=== PATIENT | male | born 1970 | race Caucasian/White ===

== ENCOUNTER → 2020-02-19 08:59 | Outpatient (CLI) | payer OTHER, SELFPAY ==
--- NOTE | 2020-02-19 | ASPOS_PTH ---
PATIENT: KAYA SCHILLING LOC: [facility] U#:[id number] AGE/SX: 55/M ROOM: RE02/19/[address]: Dr. Jh Londono MD : 1970 BED: DIS: SPEC #: [id number] RECD: 02/19/20 10:00 STATUS: CLARISA REArturo #: [id number] NOÉ: 02/19/20 00:[address]: Jh Londono DEPT: CYTOLOGY RECD BY: Samson Morfin ENTERED: 02/19/20 11:14 SP TYPE: ASP HERE OTHR DR: Oswaldo Marr, ROLL TABLE OPERATOR-C Tissues: Neck, NOS Procedures: Surgery Specimen Level IV Cytology Other Fine Needle Asp on Site HEADER OPERATION: Fine needle aspiration right neck mass PRE-OP DIAGNOSIS: Right neck mass TISSUE SUBMITTED: FNA right neck mass DIAGNOSIS CYTOLOGY Fine needle aspiration, right neck mass (smears and cell block): Polymorphous lymphocytes present. See comment. AM:mery 02/22/20 COMMENT The specimen is evaluated at the time of FNA by Dr. Pressley. Immediate Evaluation = Polymorphous lymphocytes present. Flow cytometry analysis of aspirate material reveals no evidence of B-cell or T-cell lymphoma. An incisional or excisional biopsy is recommended for definitive classification. The complete flow report is viewable in EMR. Case has been reviewed in consultation with Dr. Negron who concurs with the above diagnosis. IDC:SJ CYTOLOGY STUDY Slides are reviewed. CYTOLOGY GROSS Received is 0.2 ml of reddish fluid labeled with the patient's name, and designated right neck mass. Six imprints and two paps are made from the submitted fluid and the rest is added to CytoLyt for cell block preparation. Submitted for cytology study. / AM:mery 02/19/20 TC:5 CPT: 14661, 67165, 41977, 24040
== END ==
PROVIDERS: PCP Nurse Practitioner Family; Referring Provider Otolaryngology Otolaryngology/Facial Plastic Surgery; Visit Provider Otolaryngology Otolaryngology/Facial Plastic Surgery
DX: R22.1 Localized swelling, mass and lump, neck (principal)
CPT/HCPCS: 10021; 88161; 88305

== ENCOUNTER → 2020-05-14 17:18 | Outpatient (CLI) | payer OTHER, SELFPAY | PROVIDERS: Referring Provider Otolaryngology; Visit Provider Otolaryngology | DX: Z11.59 Encounter for screening for other viral diseases (principal) | CPT/HCPCS: 87635; C9803; U0003 ==

== ENCOUNTER → 2020-05-19 13:34 | Outpatient (CLI) | payer OTHER, SELFPAY ==
--- NOTE | 2020-05-19 | IMM_PTH ---
PATIENT: KAYA SCHILLING LOC: [facility] U#:[id number] AGE/SX: 55/M ROOM: RE05/19/[address]: Dr. Froilan Londono MD : 1970 BED: DIS: SPEC #: [id number] RECD: 05/20/20 11:41 STATUS: CLARISA REQ #: [id number] NOÉ: 05/19/20 00:[address]: Froilan Londono DEPT: IMMUNOHISTOCHEMISTRY RECD BY: Faby Grier ENTERED: 05/20/20 11:43 SP TYPE: IMMUNO OTHR DR: No Primary Care Phys Tissues: A - Tonsil, NOS B - Tonsil, NOS Procedures: CK5-6 (initial) CK14 (add) KI-67 (add) P16 (add) P53 (add) P40 (add) PHYSICIAN & INSTITUTION [place] [id number] SPECIMEN INFORMATION: Tissue Source: A - Right tonsil biopsy #1, B - Right tonsil biopsy #2 Clinical Info: Tonsillar hypertrophy, neck mass Specimen Number: [id number] A & B CPT code: 44531 x2, 91924 x7 METHODOLOGY: Deparaffinized sections of prefer/formalin-fixed tissue or PAP/DQ stained slides are incubated with monoclonal/polyclonal antibodies/oligonucleotide probes. Localization is made via biotin free immunoperoxidase method. Appropriate controls are performed and reacted as expected. Results on target cell population are indicated in the following table: RESULTS: ANTIBODY / CLONE RESULT Block A P40 (BC28) positive CK5-6 (D5 & 1684) positive P53 (DO-7) positive, 5% P16 (E6H4) positive Ki-67 (30-9) positive, 85% CK14 (LL002) positive, focal Block B P40 (BC28) positive CK5-6 (D5 & 1684) positive CK14 (LL002) positive These tests were developed and their performance characteristics determined by [facility]. They may not have been cleared or approved by the U.S. Food and Drug Administration. The FDA has determined that such clearance or approval is not necessary. The above immunohistochemical/dualISH markers are ordered and reviewed by the Pathologist. INTERPRETATION: A. Right tonsil biopsy #1: Invasive squamous cell carcinoma. B. Right tonsil biopsy #2: Invasive squamous cell carcinoma. AM:mery 05/21/20
--- NOTE | 2020-05-19 11:45 | TONS_PTH ---
PATIENT: KAYA SCHILLING [facility]: [facility] U#:[id number] AGE/SX: 55/M ROOM: RE05/19/[address]: Dr. Froilan Londono MD : 1970 BED: DIS: SPEC #: [id number] RECD: 05/19/20 13:25 STATUS: CLARISA PASCUAL #: [id number] NOÉ: 05/19/20 11:[address]: Froilan Londono DEPT: SURGICAL PATHOLOGY RECD BY: Samson Morfin ENTERED: 05/19/20 13:47 SP TYPE: TONSILS OTHR DR: No Primary Care Phys [facility] Tissues: A - Tonsil, NOS B - Tonsil, NOS C - Tonsil, NOS Procedures: Special Stain Group II Surgery Specimen Level III Surgery Specimen Level IV Imprint (control) HEADER OPERATION: Tonsillectomy, right tonsil biopsy PRE-OP DIAGNOSIS: Tonsillar hypertrophy, neck mass TISSUE SUBMITTED: A - Right tonsil biopsy #1 in saline, B - Right tonsil biopsy #2 in saline C - Left tonsil MICROSCOPIC DIAGNOSIS A. Right tonsil #1, biopsy: Invasive moderately differentiated squamous cell carcinoma. See comment. B. Right tonsil #2, biopsy: Invasive moderately differentiated squamous cell carcinoma. See comment. C. Left tonsil, tonsillectomy: Benign lymphoid hyperplasia. Organisms consistent with actinomyces. No evidence of malignancy. AM:mrey 05/20/20 COMMENT A. The specimen is evaluated at the time of touch prep by Dr. Pressley. Immediate Evaluation = non-small cell carcinoma. Case has been reviewed in consultation with Dr. Negron who concurs with the above diagnosis. IDC:EVA A. Results from immunohistochemistry ([id number]) for surrogate HPV marker (p16) will be reported separately. B. Immunohistochemistry ([id number]) supports the above diagnosis. Case has been reviewed in consultation with Dr. Negron who concurs with the above diagnosis. IDC:EVA MICROSCOPIC DESCRIPTION Slides are reviewed. GROSS DESCRIPTION A - Received fresh for touch prep preparation labeled with the patient's name is a specimen designated right tonsil #1. The specimen consists of an irregular fragment of pink soft tissue measuring 2 x 1.5 x 0.5 cm. Milk Wagon Driver touch preps are prepared. The specimen is totally submitted in one cassette. / AM: 05/19/20 B - Received fresh for touch prep preparation labeled with the patient's name is a specimen designated right tonsil #2. The specimen consists of an irregular fragment of pink soft tissue measuring 0.6 x 0.6 x 0.2 cm. The specimen is totally submitted in one cassette. / AM: 05/19/20 C - Received in formalin labeled with the patient's name and designated left tonsil. The specimen consists of a tonsil that weighs 3.1 gm and measures 3 x 1 x 1 cm. The external surface is pink-morris, smooth, glistening and somewhat lobulated. Focally it is hemorrhagic, granular and bears cautery artifact. Serial cross sections through the tonsil reveal normal tonsillar architecture. The entire specimen is submitted in two cassettes. / SJ: 05/19/20 TC:0 CPT: 62987, 49688 x2, 96711
== END ==
PROVIDERS: Referring Provider Otolaryngology; Visit Provider Otolaryngology
DX: J35.1 Hypertrophy of tonsils (principal); R22.1 Localized swelling, mass and lump, neck
CPT/HCPCS: 88304; 88305; 88313; 88341; 88342

== ENCOUNTER → 2020-06-02 12:43 | Outpatient (CLI) | payer OTHER, SELFPAY ==
--- NOTE | 2020-06-02 12:46 | CT_ITS ---
STUDY: CT SOFT TISSUE NECK WITH CONTRAST REASON FOR EXAM: Male, 49 years old. RIGHT NECK MASS RADIATION DOSAGE (If Supplied By Facility): CTDIvol = ( 12.96 ) mGy, DLP = ( 347.87 ) mGycm TECHNIQUE: The patient was scanned in a multi-detector CT scanner. High resolution transaxial imaging was performed following intravenous administration of IV 75ML ISOVUE 370. Sagittal and coronal images were reconstructed. Individualized dose optimization techniques were used for this CT. COMPARISON: None. FINDINGS: There is bovine origin of the left common carotid artery arising from the right common carotid artery. This is in normal anatomic variant. There is asymmetry of the parotid glands. The right posterior parotid gland at the angle of the mandible as a enlarged appearance as compared to the left side. I suspect a 1 cm x 1 cm hypodensity within the deep portion of the right parotid gland. Normal bilateral case liner spaces. Normal bilateral parapharyngeal spaces. Normal bilateral carotid spaces. Normal bilateral sublingual and submandibular glands and spaces. Normal visualized nasopharynx. Normal retropharyngeal space. Normal perivertebral space. Normal visualized bilateral faucial tonsils. The visualized tongue, tongue base and oropharynx are normal. The visualized cervical lymph nodes (levels I-) are within normal size limits, and maintain normal morphology. There is no demonstrated solid or cystic mass lesion. There is no abnormal contrast enhancement. Normal epiglottis, bilateral vallecula and hypopharynx. The pre-epiglottic and paraglottic adipose spaces are normal. Normal visualized bilateral piriform sinuses, aryepiglottic folds, vocal cords, and arytenoid-cricoid articulations. Normal subglottic trachea. Normal bilateral lobes of the thyroid gland. Normal visualized pulmonary apices. Normal visualized paranasal sinuses. Normal visualized cervical spine. CT/Soft Tissue Neck WITH Contrast IMPRESSION: Asymmetrical enlargement of the right parotid gland at the angle of the jaw as described with a possible 1 cm x 1 cm echodensity. Electronically Signed: Sanjay Quintero, at 15:20 EDT , Service support ,
[2020-06-02 13:21] LABS: CREATININE FINGERSTICK 0.8 mg/dL (0.70-1.30)
== END ==
PROVIDERS: Referring Provider Otolaryngology; Visit Provider Otolaryngology
DX: C44.42 Squamous cell carcinoma of skin of scalp and neck (principal)
CPT/HCPCS: 70491; Q9967

== ENCOUNTER → 2020-06-03 13:37 | Outpatient (CLI) | payer OTHER, SELFPAY ==
--- NOTE | 2020-06-03 14:00 | PET_ITS ---
EXAMINATION: FDG PET CT INDICATIONS: A 49-year-old male with history of head and neck carcinoma presenting for restaging examination. COMPARISON EXAMINATION: None available. INDEX LESION SIZE SUV INTERPRETATION Right pharyngeal mucosal space-tonsillar pillar 27.1 mm x 32.4 mm (frame 245) 15.7 Fulfills quantitative criteria for viable neoplasm Right vascular-parapharyngeal mucosal space 19.1 mm x 9.7 mm largest (frame 236) 5.3 (max) Fulfills quantitative criteria for viable neoplasm TECHNIQUE: Following the intravenous administration of 15.1 mCi of F-18 deoxyglucose via the left antecubital fossa, multiplanar image acquisitions of the neck, chest, abdomen and pelvis to level of mid thigh, obtained at one hour post radiopharmaceutical administration contemporaneously interpreted with the current CT of the neck, chest, abdomen and pelvis to level of mid thigh, dated 06/03/20 via coregistration reveal: SERUM GLUCOSE LEVEL: 92 mg/dl. HEIGHT: 70 inches. WEIGHT: 190 lbs. FINDINGS: 1. Increased glucose metabolism is defined in the right pharyngeal mucosal space-tongue base extending to the tonsillar pillar. The calculated maximum standard uptake value is 15.7. The maximal axial diameter of corresponding metabolic abnormality is 27.1 mm (transverse) x 32.4 mm (AP). 2. Asymmetric increased glucose metabolism is defined in the right vascular-parapharyngeal space rendering a calculated maximum standard uptake value of 5.3. The maximal axial diameter of the largest metabolic, morphologic abnormality on review of CT of the neck dated 06/03/20 is 19.1 mm (transverse) x 9.7 mm (AP). 3. Normal physiologic distribution of the radiopharmaceutical is apparent in the hepatic (2.8) and splenic parenchyma, both renal units, bladder and visualized intestinal tract. There is symmetric glucose metabolism identified in the occipital, parietal, temporal and frontal lobes of the cerebral cortex, with normal visualization of the cerebellar hemispheres and basal ganglia. Prominent radiopharmaceutical concentration is apparent in the anterior nares without evidence of soft tissue thickening likely representing activated leukocytes associated with an inflammatory process-rhinitis. Subtle increased glucose concentration is observed in the left upper abdomen associated with the proximal gastric body-lesser curvature rendering a calculated standard uptake value of 1.9. Quantitative criteria for viable neoplasm are not fulfilled. Pertinent CT findings are as follows. CHEST: There are no parenchymal densities-nodules defined in the right and left hemithorax with discernible increased FDG distribution. Subcentimeter parenchymal density defined in the right upper posterior lung-right upper lobe is ametabolic. Coronary arterial calcification is observed. Atherosclerotic calcification is defined in the thoracic aorta without evidence of dilatation, aneurysm formation. Bilateral axillary soft tissue densities with fatty hilus are non-glucose avid. ABDOMEN AND PELVIS: Right and left inguinal soft tissue with fatty hilus formation demonstrate no evidence of increased glucose metabolism. Subtle dystrophic calcification is manifest within the prostate gland without evidence of concomitant increased tracer uptake. Colonic diverticulosis is encountered without evidence of diverticulitis. SKELETAL: Degenerative changes defined in the cervical, thoracic and lumbar spine demonstrate no evidence of glucose hypermetabolism. PET/PET/CT Tumor Base -Thigh Init IMPRESSION: 1. ABNORMAL EXAMINATION INDICATIVE OF [id number] VIABLE NEOPLASM. 2. Increased glucose concentration noted in the right pharyngeal mucosal space-tongue base, tonsillar pillar fulfills quantitative criteria for viable neoplasm. 3. Enhanced tracer concentration observed in the right vascular-parapharyngeal space fulfills quantitative criteria for metastatic disease. 4. No other quantitatively significant hypermetabolic abnormalities are noted. There is no definitive scintigraphic evidence of distant metastasis. Electronic Signature Oswaldo Al D.O. Accurate Quantification of SUVs for this report are calculated using the exclusive [employer]qu[employer]? Technology. Exclusive U.S. Patent Accuquan? Technology (U.S. Patent No. [id number] [id number]). Electronically Signed: Oswaldo Al DO at 23:19 EDT Tel , Service support ,
== END ==
PROVIDERS: Referring Provider Otolaryngology; Visit Provider Otolaryngology
DX: C09.9 Malignant neoplasm of tonsil, unspecified (principal)
CPT/HCPCS: 78815; A9552

== ENCOUNTER → 2020-12-09 14:38 | Outpatient (CLI) | payer BC, SELFPAY ==
--- NOTE | 2020-12-09 15:00 | PET_ITS ---
EXAMINATION: FDG PET/CT INDICATIONS: A 50-year-old male with reported history of head and neck carcinoma presenting for restaging examination. COMPARISON EXAMINATION: None available TECHNIQUE: Following the intravenous administration of 12.65 mCi of F-18 deoxyglucose via the right antecubital fossa, multiplanar image acquisitions of the neck, chest, abdomen and pelvis to level of mid thigh, obtained at one hour post radiopharmaceutical administration contemporaneously interpreted with the current CT of the neck, chest, abdomen and pelvis to level of mid thigh, dated 12/09/20 via coregistration reveal: SERUM GLUCOSE LEVEL: 86 mg/dl. HEIGHT: 70 inches. WEIGHT: 180 lbs. FINDINGS: 1. There is no quantitative scintigraphic evidence of abnormal increased glucose metabolism on meticulous inspection of whole body acquisitions to include all three axis reconstructions. 2. Normal physiologic distribution of the radiopharmaceutical is apparent in the hepatic and splenic parenchyma, both renal units, bladder and visualized intestinal tract. Symmetric radiopharmaceutical concentration is defined in the anterior aspect of the oral cavity associated with the genioglossus musculature. The visualized portion of the cerebral cortex, cerebellar hemispheres and basal ganglia demonstrates uniform and preserved glucose metabolism. Diffuse radiopharmaceutical concentration is noted in all four quadrants of the abdomen and pelvis. Prominent radiopharmaceutical concentration is observed in the left ventricular myocardium commensurate with the [place]. (Evita and Kalee, Journal of Nuclear Medicine Technology 31:3, 2003). Pertinent CT findings are as follows: CHEST: There is atherosclerotic calcification defined in the thoracic aorta without evidence of dilatation-aneurysm formation. Coronary arterial calcification is observed. Bilateral axillary soft tissue with fatty hilus is ametabolic. There are no parenchymal densities-nodules defined in the right and left hemithorax with discernible increased FDG concentration. A subtle nodular density defined in the right mid posterior lung-right upper lobe is ametabolic. ABDOMEN AND PELVIS: Bilateral inguinal soft tissue densities with fatty hilus reveal no evidence of increased tracer uptake. Scattered subcentimeter retroperitoneal soft tissue is ametabolic. Colonic diverticulosis is encountered without evidence of diverticulitis. SKELETAL: Degenerative changes are noted in the cervical, thoracic and lumbar spine without evidence of increased radiopharmaceutical concentration. Scattered sclerotic densities defined in the axial skeletal structures reveal no evidence of increased tracer uptake. PET/PET/CT Tumor Base -Thigh Subs IMPRESSION: 1. NEGATIVE EXAMINATION. There is no definitive quantitative scintigraphic evidence of recurrent-metastatic/viable neoplasm. Electronic Signature Oswaldo Al D.O. Accurate Quantification of SUVs for this report are calculated using the exclusive [employer].??Exclusive U.S. Patent AccuMismian? Technology (U.S. Patent No. [id number]). Electronically Signed: Oswaldo Al DO at 23:29 EDT Tel , Service support ,
== END ==
PROVIDERS: Referring Provider Internal Medicine Hematology & Oncology; Visit Provider Internal Medicine Hematology & Oncology
DX: C09.9 Malignant neoplasm of tonsil, unspecified (principal)
CPT/HCPCS: 78815; A9552

== ENCOUNTER 2021-11-26 08:45 | Outpatient (RCR) | payer BC, SELFPAY ==
--- NOTE | 2021-11-25 09:20 | RAD_ITS ---
STUDY: X-RAY CHEST REASON FOR EXAM: Male, 51 years old. HBO treatment. No chest complaints. 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 TECHNIQUE: PA and lateral views of the chest. COMPARISON: PET/CT scan, 12/09/2020. FINDINGS: The lungs are clear and expanded. There is no demonstrated pleural abnormality. Normal size heart. Normal mediastinum and jorge. Normal visualized pulmonary arteries. Normal visualized aortic arch and descending thoracic aorta. Normal visualized thoracic spine. Normal visualized ribs, clavicles, and shoulders. There is no demonstrated abnormality of the visualized soft tissue structures of the upper abdomen. RAD/Chest PA and Lateral IMPRESSION: No acute cardiopulmonary disease. Electronically Signed: Pernell Melgoza DO at 23:15 EDT ,
--- NOTE | 2021-11-25 09:28 | HBO.CON.PC_ITS ---
Assessment & Plan Assessment/Plan (1) Osteoradionecrosis of jaw: PLAN: Patient will be ordered to [facility] for 90 minutes without air breaks 1 treatment per day delivered Tuesday through Tuesday unless otherwise specified for 30 total treatments (2) Tonsil cancer: History of Present Illness Date of Service: 11/25/21 Chief Complaint: Osteoradionecrosis R jaw here for HBO consult History of Wound: 51-year-old white maleThat he had his right upper wisdom tooth removed.He then developed an infection in his jaw and mouth with numbness.Saw ENT Dr. 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 This was back in 2019 finished his radiation treatments and chemotherapy.And now is here because he could develop osteoradionecrosis radionecrosis of the right jaw Progress of Wound: Patient is leaving his job and will be going on [employer] for his insurance so are still waiting to get that cleared through [employer] before he can start HBO. Patient has no respiratory issues is basically healthy has no ear traumas or problems with hearing ear canals were all patent. Has no cardiac history and is just anxious to get going on the treatments. Patient will get a tour today and answer all of his questions. Patient will be scheduling for his EKG labs and chest x-ray. [facility] Medical History (Updated 11/25/21 @ 09:37 by Whit Blackwood NP, SLAG MIXER-C) Abscess Tonsil cancer Allergy/AdvReac Type Severity Reaction Status Date / Time No Known Allergies Allergy Verified 11/25/21 08:20 Family History (Updated 11/25/21 @ 09:36 by Whit Blackwood NP, SLAG MIXER-C) Father Diabetes Surgical History (Updated 11/25/21 @ 09:35 by Whit Blackwood NP, SLAG MIXER-C) [place] teeth extracted Social History Smoking Status: Former smoker ROS Constitutional Constitutional: Reports systems reviewed and no addt'l complaints, except as documented Eyes Eyes: Reports systems reviewed and no addt'l complaints, except as documented ENT HEENT: Reports systems reviewed and no addt'l complaints, except as documented Cardiovascular Cardiovascular: Reports systems reviewed and no addt'l complaints, except as documented Respiratory/Chest Respiratory/Chest: Reports systems reviewed and no addt'l complaints, except as documented Gastrointestinal Gastrointestinal: Reports systems reviewed and no addt'l complaints, except as documented Genitourinary Genitourinary: Reports systems reviewed and no addt'l complaints, except as documented Musculoskeletal Musculoskeletal: Reports systems reviewed and no addt'l complaints, except as documented Integumentary Integumentary: Reports systems reviewed and no addt'l complaints, except as documented Neurologic Neurologic: Reports systems reviewed and no addt'l complaints, except as documented Psychiatric Psychiatric: Reports systems reviewed and no addt'l complaints, except as documented Endocrine Endocrinology: Reports systems reviewed and no addt'l complaints, except as documented Hematologic/Lymphatic Hematologic/Lymphatic: Reports systems reviewed and no addt'l complaints, except as documented Allergic/Immunologic Allergic/Immunologic: Reports systems reviewed and no addt'l complaints, except as documented Physical Exam Physical Exam Const oriented x3 General Appearance: cooperative Exam Limitations: no limitations HEENT normocephalic Head and Scalp: normal to inspection Face and Sinus: normal facial exam Nose: external nose normal General Ear: hearing grossly impaired External Ear: external ears normal Mouth: oral and palatal mucosa normal Eyes PERRL General Eye: normal appearance of both eyes Neck full ROM General: normal visual inspection Resp normal respiratory effort Effort and Inspection: able to speak in complete sentences Auscultation: clear to auscultation bilaterally Cardio regular rate and regular rhythm Palpation: normal PMI Rate: regular rate Rhythm: regular rhythm GI Auscultation: normoactive bowel sounds Palpation: soft and no hepatosplenomegaly external exam normal Back/Spine Cervical Spine: cervical ROM normal Thoracic Spine / Upper Back: normal to inspection Lumbar Spine / Lower Back: normal to inspection Extremity normal to inspection General Extremity: normal exam except as noted Skin no rashes or lesions noted Neuro oriented x3 Psych Appearance: grossly normal Speech: normal speech Thought Content: normal thought content Judgement: judgement good Lab / Micro Data Result Diagrams: 11/25/21 09:15
[2021-11-25 09:41] LABS: Absolute Neutrophil Count 3.7 X10^3/uL (2.0-7.7); Basophil# 0.03 X10^3/uL; Basophil% 0.6 % (0-1); Eosinophil# 0.22 X10^3/uL; Eosinophils% 4.3 % (0-5); Hematocrit 41.9 % (40-54); Hemoglobin 14.5 g/dL (13.0-16.5); Lymphocyte % 11.7 % (19-41); Mean Corp Hgb Conc 34.6 g/dL (32-36); Mean Corpuscular Volume 89.5 fL (80-94); Mean Platelet Vol. 9.9 fl (6.2-12.0); Monocyte# 0.58 X10^3/uL; Monocyte% 11.3 % (0-10); NRBC Flagged by Analyzer 0 % (0-5); Neutrophil # 3.69 X10^3/uL (2.7-7.7); Neutrophil % 71.9 % (47-70); POSITIVE DIFFERENTIAL YES; Platelet Count 287 K/mm3 (150-450); RBC Distribution Width CV 13.2 % (11.6-14.6); RBC Distribution Width SD 43.7 fl (35.1-43.9); Red Blood Count 4.68 M/mm3 (4.6-6.2); White Blood Count 5.1 K/mm3 (4.4-11.0)
[2021-11-25 09:54] LABS: Differential Indicated SCAN CRITERIA MET
--- NOTE | 2021-11-26 08:40 | EKG12_ITS ---
Test Reason : HBO Blood Pressure : / mmHG Vent. Rate : 047 BPM Atrial Rate : 047 BPM P-R Int : 182 ms QRS Dur : 108 ms QT Int : 420 ms P-R-T Axes : 036 067 055 degrees QTc Int : 371 ms Sinus bradycardia Otherwise normal ECG Confirmed by ELISA GUERRERO, FREDERICK ([id number]), photograph editor PEG CASTLE ([id number]) on 11/27/2021 8:51:45 AM Referred By: Whit Blackwood Confirmed By:FREDERICK PÉREZ MD
== END 2021-12-03 23:59 | disposition home or self-care (01) ==
LOC: PSN 08:45
PROVIDERS: Referring Provider Nurse Practitioner; Visit Provider Nurse Practitioner
DX: M27.2 Inflammatory conditions of jaws (principal); C09.9 Malignant neoplasm of tonsil, unspecified; Y84.2 Radiological procedure and radiotherapy as the cause of abnormal reaction of the patient, or of later complication, without mention of misadventure at the time of the procedure; Z87.891 Personal history of nicotine dependence
CPT/HCPCS: 36415; 71046; 85025; 93005; 99203; G0463

== ENCOUNTER 2022-01-01 10:00 | Outpatient (RCR) | payer BC, SELFPAY ==
--- NOTE | 2021-12-21 12:47 | HBO.PN.PCM_ITS ---
History of Present Illness Date of Service: 12/21/21 Chief Complaint: Osteoradionecrosis R jaw here for HBO consult History of Wound: 51-year-old white maleThat he had his right upper wisdom tooth removed.He then developed an infection in his jaw and mouth with numbness.Saw ENT Dr. 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 This was back in 2019 finished his radiation treatments and chemotherapy.And now is here because he could develop osteoradionecrosis radionecrosis of the right jaw Subjective Subjective This patient presents for his first hyperbaric oxygen therapy session. Currently there is a planned total of 30 sessions. Hyperbaric oxygen therapy was administered as per the facility's protocol. Hyperbaric oxygen therapy was administered at 2 charu for 90 minutes with no air breaks. Patient tolerated hyperbaric oxygen therapy well, without complaints or complications. Upon emergence from the hyperbaric chamber, the patient's vital signs remained stable. The patient was discharged feeling good but had a grade II-III barotrauma injury to the left TM. 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 He did suffer a second to third-degree barotrauma to the left tympanic membrane. 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 Our staff will contact the ENT to have the patient evaluated before he participates in any further hyperbaric oxygen therapy.
[2021-12-21 13:22] VITALS: BP 115/75; BP 135/87; PULSE 56; PULSE 64; RESP 15; RESP 17; TEMP 36.8
--- NOTE | 2021-12-28 11:26 | PCM.HBO.PN ---
History of Present Illness Date of Service: 12/28/21 Chief Complaint: Osteoradionecrosis R jaw here for HBO consult History of Wound: 51-year-old white maleThat he had his right upper wisdom tooth removed.He then developed an infection in his jaw and mouth with numbness.Saw ENT Dr. 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 This was back in 2019 finished his radiation treatments and chemotherapy.And now is here because he could develop osteoradionecrosis radionecrosis of the right jaw Subjective Subjective This patient presents for his 2nd hyperbaric oxygen therapy session. Currently there is a planned total of 30 sessions. Hyperbaric oxygen therapy was administered as per the facility's protocol. Hyperbaric oxygen therapy was administered at 2 charu for 90 minutes with no air breaks. Patient tolerated hyperbaric oxygen therapy well, without complaints or complications. Upon emergence from the hyperbaric chamber, the patient's vital signs remained stable. He left in good condition. Objective Data Objective Data Vital Signs: Vital Signs Temp Pulse Resp BP 98.3 F 64 17 135/87 H 12/21/21 13:22 12/21/21 13:22 12/21/21 13:22 12/21/21 13:22 Exam Physical Exam Const alert General Appearance: cooperative HEENT normocephalic Tympanic Membrane: other Other Details: Bilateral eustachian tubes Neck General: normal visual inspection Resp normal respiratory effort and clear to auscultation bilaterally Cardio regular rate, regular rhythm and no murmurs Psych mental status grossly normal Attitude: calm Activity / Motor Behavior: appropriate eye contact Speech: normal speech Assessment/Plan Assessment/Plan (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 This will be continued as per the patient's medical plan.
[2021-12-28 13:37] VITALS: BP 120/87; BP 130/84; PULSE 53; PULSE 62; RESP 17; TEMP 36.7
[2021-12-29 11:27] VITALS: BP 124/92; BP 134/73; PULSE 51; PULSE 63; RESP 16; TEMP 36.4
--- NOTE | 2021-12-29 15:21 | PCM.HBO.PN ---
History of Present Illness Date of Service: 12/29/21 Chief Complaint: Osteoradionecrosis R jaw History of Wound: This is a 51-year-old white male who recently had his right upper wisdom tooth removed. He then developed an infection and nonhealing at the site. The patient's history is significant for removal of his tonsils by Dr. 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 The patient underwent 7 weeks of radiation therapy. It appears as though the patient's prior exposure to radiation therapy has resulted in soft tissue and deysi radiation injury, the reason for which his recent wisdom tooth extraction failed to heal as expected. He is now undergoing hyperbaric oxygen therapy for osteoradionecrosis and radiation injury which has resulted in the failure of a recent tooth extraction to heal. 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 Subjective Subjective The patient presents today for hyperbaric oxygen therapy. Today's session represents the third such session of an anticipated 30 sessions. Hyperbaric oxygen therapy was administered as per the facility's protocol. Hyperbaric oxygen therapy was administered at 2 charu for 90 minutes with no air breaks. The patient tolerated hyperbaric oxygen therapy well, without complaints or complications. Upon emergence from the hyperbaric chamber, the patient's vital signs remained stable. He was discharged in good condition. Objective Data Objective Data Vital Signs: Vital Signs Temp Pulse Resp BP 97.6 F L 63 16 124/92 H 12/29/21 11:27 12/29/21 11:27 12/29/21 11:27 12/29/21 11:27 Exam Physical Exam Const alert, oriented x3, no apparent distress and well nourished General Appearance: cooperative and well developed HEENT normocephalic and EAC's normal Head and Scalp: atraumatic Eyes PERRL and EOMs intact bilaterally Resp normal respiratory effort and no use of accessory muscles Effort and Inspection: able to speak in complete sentences Psych affect normal Appearance: grossly normal and well kempt Assessment/Plan Assessment/Plan (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
--- NOTE | 2021-12-30 13:45 | PCM.HBO.PN ---
History of Present Illness Date of Service: 12/30/21 Chief Complaint: Osteoradionecrosis R jaw History of Wound: This is a 51-year-old white male who recently had his right upper wisdom tooth removed. He then developed an infection and nonhealing at the site. The patient's history is significant for removal of his tonsils by Dr. 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 The patient underwent 7 weeks of radiation therapy. It appears as though the patient's prior exposure to radiation therapy has resulted in soft tissue and deysi radiation injury, the reason for which his recent wisdom tooth extraction failed to heal as expected. He is now undergoing hyperbaric oxygen therapy for osteoradionecrosis and radiation injury which has resulted in the failure of a recent tooth extraction to heal. 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 Subjective Subjective This patient presents for his 4th hyperbaric oxygen therapy session. Currently there is a planned total of 30 sessions. Hyperbaric oxygen therapy was administered as per the facility's protocol. Hyperbaric oxygen therapy was administered at 2 charu for 90 minutes with no air breaks. Patient tolerated hyperbaric oxygen therapy well, without complaints or complications. Upon emergence from the hyperbaric chamber, the patient's vital signs remained stable. He left in good condition. Objective Data Objective Data Vital Signs: Vital Signs Temp Pulse Resp BP 97.6 F L 63 16 124/92 H 12/29/21 11:27 12/29/21 11:27 12/29/21 11:27 12/29/21 11:27 Exam Physical Exam Const alert General Appearance: cooperative HEENT normocephalic Tympanic Membrane: other Other Details: Bilateral eustachian tubes Neck General: normal visual inspection Resp normal respiratory effort and clear to auscultation bilaterally Cardio regular rate, regular rhythm and no murmurs Psych mental status grossly normal Attitude: calm Activity / Motor Behavior: appropriate eye contact Speech: normal speech Assessment/Plan Assessment/Plan (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 This will be continued as per the patient's medical plan.
[2021-12-30 14:27] VITALS: BP 123/77; BP 123/81; PULSE 51; PULSE 58; RESP 18; RESP 20; TEMP 36.4; TEMP 36.5
[2021-12-31 12:16] VITALS: BP 140/95; BP 145/91; PULSE 55; PULSE 69; RESP 16; RESP 17; TEMP 36.9
--- NOTE | 2021-12-31 12:28 | PCM.HBO.PN ---
History of Present Illness Date of Service: 12/31/21 Chief Complaint: Osteoradionecrosis R jaw History of Wound: This is a 51-year-old white male who recently had his right upper wisdom tooth removed. He then developed an infection and nonhealing at the site. The patient's history is significant for removal of his tonsils by Dr. 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 The patient underwent 7 weeks of radiation therapy. It appears as though the patient's prior exposure to radiation therapy has resulted in soft tissue and deysi radiation injury, the reason for which his recent wisdom tooth extraction failed to heal as expected. He is now undergoing hyperbaric oxygen therapy for osteoradionecrosis and radiation injury which has resulted in the failure of a recent tooth extraction to heal. 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 Progress of Wound: Today represents the 5th session of hyperbaric oxygen therapy for radionecrosis of right jaw. Hyperbaric oxygen therapy was administered as per the facility's protocol at 2 SENDY for 90 minutes with no air breaks. Upon emergence from the hyperbaric oxygen chamber, patient's vital signs remained stable. He was discharged in stable condition. Objective Data Objective Data Vital Signs: Vital Signs Temp Pulse Resp BP 98.4 F 69 17 145/91 H 12/31/21 12:16 12/31/21 12:16 12/31/21 12:16 12/31/21 12:16 Exam Physical Exam Const alert, oriented x3 and no apparent distress General Appearance: cooperative, comfortable and well kempt HEENT normocephalic Head and Scalp: normal to inspection Face and Sinus: normal facial exam Tympanic Membrane: other Other Details: Bilateral eustachian tubes Neck General: normal visual inspection Resp normal respiratory effort Neuro oriented x3, CN's II-XII intact bilaterally and moves all extremities Psych mental status grossly normal Attitude: calm Activity / Motor Behavior: appropriate eye contact Speech: normal speech Charges/Coding W[facility] Procedures HBO Supervision: [id number] Hyperbaric Oxygen; supervision Assessment/Plan Assessment/Plan (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 This note was generated with [employer] software. It may contain incorrect words, spelling, and punctuation that were not noted in checking the note before signing.
[2022-01-01 13:11] VITALS: BP 125/86; BP 127/69; PULSE 55; PULSE 58; RESP 16; TEMP 36.9
--- NOTE | 2022-01-01 17:31 | PCM.HBO.PN ---
History of Present Illness Date of Service: 01/01/22 Chief Complaint: Osteoradionecrosis R jaw History of Wound: This is a 51-year-old white male who recently had his right upper wisdom tooth removed. He then developed an infection and nonhealing at the site. The patient's history is significant for removal of his tonsils by Dr. 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 The patient underwent 7 weeks of radiation therapy. It appears as though the patient's prior exposure to radiation therapy has resulted in soft tissue and deysi radiation injury, the reason for which his recent wisdom tooth extraction failed to heal as expected. He is now undergoing hyperbaric oxygen therapy for osteoradionecrosis and radiation injury which has resulted in the failure of a recent tooth extraction to heal. 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 Progress of Wound: Today represents the 6th session of hyperbaric oxygen therapy for radionecrosis of right jaw. Hyperbaric oxygen therapy was administered as per the facility's protocol at 2 SENDY for 90 minutes with no air breaks. Upon emergence from the hyperbaric oxygen chamber, patient's vital signs remained stable. He was discharged in stable condition. 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
== END 2022-01-02 23:59 | disposition home or self-care (01) ==
LOC: WC 10:00
PROVIDERS: Referring Provider Nurse Practitioner; Visit Provider Nurse Practitioner
DX: M27.2 Inflammatory conditions of jaws (principal); C09.9 Malignant neoplasm of tonsil, unspecified; Z92.3 Personal history of irradiation
CPT/HCPCS: 99183; G0277

== ENCOUNTER 2022-01-28 08:15 | Outpatient (RCR) | payer BC, SELFPAY ==
[2022-01-03 00:42] VITALS: BP 127/69; PULSE 58; RESP 16; TEMP 36.9
--- NOTE | 2022-01-04 10:47 | PCM.HBO.PN ---
History of Present Illness Date of Service: 01/04/22 Chief Complaint: Osteoradionecrosis R jaw History of Wound: This is a 51-year-old white male who recently had his right upper wisdom tooth removed. He then developed an infection and nonhealing at the site. The patient's history is significant for removal of his tonsils by Dr. 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 The patient underwent 7 weeks of radiation therapy. It appears as though the patient's prior exposure to radiation therapy has resulted in soft tissue and deysi radiation injury, the reason for which his recent wisdom tooth extraction failed to heal as expected. He is now undergoing hyperbaric oxygen therapy for osteoradionecrosis and radiation injury which has resulted in the failure of a recent tooth extraction to heal. 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 Subjective Subjective This patient presents for his 7th hyperbaric oxygen therapy session. Currently there is a planned total of 30 sessions. Hyperbaric oxygen therapy was administered as per the facility's protocol. Hyperbaric oxygen therapy was administered at 2 charu for 90 minutes with no air breaks. Patient tolerated hyperbaric oxygen therapy well, without complaints or complications. Upon emergence from the hyperbaric chamber, the patient's vital signs remained stable. He left in good condition. Objective Data Objective Data Vital Signs: Vital Signs Temp Pulse Resp BP 98.4 F 58 L 16 127/69 H 01/03/22 00:42 01/03/22 00:42 01/03/22 00:42 01/03/22 00:42 Exam Physical Exam Const alert General Appearance: cooperative HEENT normocephalic Tympanic Membrane: other Other Details: Bilateral eustachian tubes Neck General: normal visual inspection Resp normal respiratory effort and clear to auscultation bilaterally Cardio regular rate, regular rhythm and no murmurs Psych mental status grossly normal Attitude: calm Activity / Motor Behavior: appropriate eye contact Speech: normal speech Assessment/Plan Assessment/Plan (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 This will be continued as per the patient's medical plan.
[2022-01-04 13:20] VITALS: BP 121/82; BP 125/78; PULSE 54; PULSE 64; RESP 16; RESP 17; TEMP 36.8
[2022-01-05 10:52] VITALS: BP 114/74; BP 128/95; PULSE 56; PULSE 64; RESP 16; RESP 17; TEMP 36.9
--- NOTE | 2022-01-05 13:17 | PCM.HBO.PN ---
History of Present Illness Date of Service: 01/05/22 Chief Complaint: Osteoradionecrosis R jaw History of Wound: This is a 51-year-old white male who recently had his right upper wisdom tooth removed. He then developed an infection and nonhealing at the site. The patient's history is significant for removal of his tonsils by Dr. 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 The patient underwent 7 weeks of radiation therapy. It appears as though the patient's prior exposure to radiation therapy has resulted in soft tissue and deysi radiation injury, the reason for which his recent wisdom tooth extraction failed to heal as expected. He is now undergoing hyperbaric oxygen therapy for osteoradionecrosis and radiation injury which has resulted in the failure of a recent tooth extraction to heal. 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 Subjective Subjective The patient presented today for hyperbaric oxygen therapy. Today's session represents the eighth such session of an anticipated 30 sessions. Hyperbaric oxygen therapy was administered as per the facility's protocol. Hyperbaric oxygen therapy was administered at 2 charu for 90 minutes with no air breaks. The patient tolerated the hyperbaric oxygen therapy without complaints or complications. Upon emergence from the hyperbaric chamber, the patient's vital signs remained stable. He was discharged in good condition. Objective Data Objective Data Vital Signs: Vital Signs Temp Pulse Resp BP 98.5 F 64 17 128/95 H 01/05/22 10:52 01/05/22 10:52 01/05/22 10:52 01/05/22 10:52 Exam Physical Exam Const alert, oriented x3, no apparent distress and well nourished General Appearance: cooperative and well developed HEENT normocephalic and EAC's normal Head and Scalp: atraumatic Eyes PERRL and EOMs intact bilaterally Neck no JVD Resp normal respiratory effort and no use of accessory muscles Effort and Inspection: able to speak in complete sentences Psych affect normal Appearance: grossly normal and well kempt Assessment/Plan Assessment/Plan (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
[2022-01-06 11:07] VITALS: BP 128/76; BP 132/81; PULSE 53; PULSE 59; RESP 16; TEMP 36.8
--- NOTE | 2022-01-06 12:21 | PCM.HBO.PN ---
History of Present Illness Date of Service: 01/06/22 Chief Complaint: Osteoradionecrosis R jaw History of Wound: This is a 51-year-old white male who recently had his right upper wisdom tooth removed. He then developed an infection and nonhealing at the site. The patient's history is significant for removal of his tonsils by Dr. 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 The patient underwent 7 weeks of radiation therapy. It appears as though the patient's prior exposure to radiation therapy has resulted in soft tissue and deysi radiation injury, the reason for which his recent wisdom tooth extraction failed to heal as expected. He is now undergoing hyperbaric oxygen therapy for osteoradionecrosis and radiation injury which has resulted in the failure of a recent tooth extraction to heal. 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 Progress of Wound: Patient is receiving treatment #9 of 30 for his radionecrosis of the jaw tolerating treatments well. Subjective Subjective Patient has no concerns today Objective Data Objective Data Vital signs on admission and discharge were stable patient has no concerns did very well we will continue treatment Vital Signs: Vital Signs Temp Pulse Resp BP 98.2 F 59 L 16 128/76 H 01/06/22 11:07 01/06/22 11:07 01/06/22 11:07 01/06/22 11:07 Exam Physical Exam Const alert, oriented x3, no apparent distress and well nourished General Appearance: cooperative and well developed HEENT normocephalic and EAC's normal Head and Scalp: atraumatic Eyes PERRL and EOMs intact bilaterally Neck no JVD Resp normal respiratory effort and no use of accessory muscles Effort and Inspection: able to speak in complete sentences Psych affect normal Appearance: grossly normal and well kempt Assessment/Plan Assessment/Plan (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
--- NOTE | 2022-01-07 10:41 | HBO.PN.PCM_ITS ---
History of Present Illness Date of Service: 01/07/22 Chief Complaint: Osteoradionecrosis R jaw History of Wound: This is a 51-year-old white male who recently had his right upper wisdom tooth removed. He then developed an infection and nonhealing at the site. The patient's history is significant for removal of his tonsils by Dr. 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 The patient underwent 7 weeks of radiation therapy. It appears as though the patient's prior exposure to radiation therapy has resulted in soft tissue and deysi radiation injury, the reason for which his recent wisdom tooth extraction failed to heal as expected. He is now undergoing hyperbaric oxygen therapy for osteoradionecrosis and radiation injury which has resulted in the failure of a recent tooth extraction to heal. 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 Progress of Wound: Today represents the 10th session of hyperbaric oxygen therapy for radionecrosis of right jaw. Hyperbaric oxygen therapy was administered as per the facility's protocol at 2 SENDY for 90 minutes with no air breaks. Upon emergence from the hyperbaric oxygen chamber, patient's vital signs remained stable. He was discharged in stable condition. Objective Data Objective Data Vital Signs: Vital Signs Temp Pulse Resp BP 98.2 F 59 L 16 128/76 H 01/06/22 11:07 01/06/22 11:07 01/06/22 11:07 01/06/22 11:07 Exam Physical Exam Const alert, oriented x3 and no apparent distress General Appearance: cooperative, comfortable and well kempt HEENT normocephalic Head and Scalp: normal to inspection Face and Sinus: normal facial exam Tympanic Membrane: other Other Details: Bilateral eustachian tubes Neck General: normal visual inspection Resp normal respiratory effort Neuro oriented x3, CN's II-XII intact bilaterally and moves all extremities Psych mental status grossly normal Attitude: calm Activity / Motor Behavior: appropriate eye contact Speech: normal speech Charges/Coding Wound [facility] Procedures HBO Supervision: [id number] Hyperbaric Oxygen; supervision Assessment/Plan Assessment/Plan (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 This note was generated with [employer] dictation software. It may contain incorrect words, spelling, and punctuation that were not noted in checking the note before signing.
[2022-01-07 11:10] VITALS: BP 114/81; BP 132/80; PULSE 55; PULSE 66; RESP 16; RESP 17; TEMP 36.6
[2022-01-08 11:11] VITALS: BP 110/72; BP 120/72; PULSE 57; PULSE 64; RESP 16; RESP 18; TEMP 36.5
--- NOTE | 2022-01-08 15:22 | PCM.HBO.PN ---
History of Present Illness Date of Service: 01/08/22 Chief Complaint: Osteoradionecrosis R jaw History of Wound: This is a 51-year-old white male who recently had his right upper wisdom tooth removed. He then developed an infection and nonhealing at the site. The patient's history is significant for removal of his tonsils by Dr. 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 The patient underwent 7 weeks of radiation therapy. It appears as though the patient's prior exposure to radiation therapy has resulted in soft tissue and deysi radiation injury, the reason for which his recent wisdom tooth extraction failed to heal as expected. He is now undergoing hyperbaric oxygen therapy for osteoradionecrosis and radiation injury which has resulted in the failure of a recent tooth extraction to heal. 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 Progress of Wound: Today represents the 11th session of hyperbaric oxygen therapy for radionecrosis of right jaw. Hyperbaric oxygen therapy was administered as per the facility's protocol at 2 SENDY for 90 minutes with no air breaks. Upon emergence from the hyperbaric oxygen chamber, patient's vital signs remained stable. He was discharged in stable condition. Objective Data Objective Data Vital Signs: Vital Signs Temp Pulse Resp BP 97.7 F L 64 18 120/72 01/08/22 11:11 01/08/22 11:11 01/08/22 11:11 01/08/22 11:11 Exam Physical Exam Const alert, oriented x3 and no apparent distress Psych mental status grossly normal, thought process normal, cooperative, affect normal and speech normal Assessment/Plan Assessment/Plan (1) Osteoradionecrosis of jaw: CODE(S): M27.2 - Inflammatory conditions of jaws; Y84.2 - Radiological procedure and radiotherapy as the cause of abnormal reaction of the patient, or of later complication, without mention of misadventure at the time of the procedure (2) Tonsil cancer: CODE(S): C09.9 - Malignant neoplasm of tonsil, unspecified PLAN: The patient appears to be tolerating hyperbaric oxygen therapy well, which will be continued as per their medical treatment plan.
--- NOTE | 2022-01-11 10:37 | PCM.HBO.PN ---
History of Present Illness Date of Service: 01/11/22 Chief Complaint: Osteoradionecrosis R jaw History of Wound: This is a 51-year-old white male who recently had his right upper wisdom tooth removed. He then developed an infection and nonhealing at the site. The patient's history is significant for removal of his tonsils by Dr. 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 The patient underwent 7 weeks of radiation therapy. It appears as though the patient's prior exposure to radiation therapy has resulted in soft tissue and deysi radiation injury, the reason for which his recent wisdom tooth extraction failed to heal as expected. He is now undergoing hyperbaric oxygen therapy for osteoradionecrosis and radiation injury which has resulted in the failure of a recent tooth extraction to heal. 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 Subjective Subjective This patient presents for his 12th hyperbaric oxygen therapy session. Currently there is a planned total of 30 sessions. Hyperbaric oxygen therapy was administered as per the facility's protocol. Hyperbaric oxygen therapy was administered at 2 charu for 90 minutes with no air breaks. Patient tolerated hyperbaric oxygen therapy well, without complaints or complications. Upon emergence from the hyperbaric chamber, the patient's vital signs remained stable. He left in good condition. Objective Data Objective Data Vital Signs: Vital Signs Temp Pulse Resp BP 97.7 F L 64 18 120/72 01/08/22 11:11 01/08/22 11:11 01/08/22 11:11 01/08/22 11:11 Exam Physical Exam Const alert General Appearance: cooperative HEENT normocephalic Tympanic Membrane: other Other Details: Bilateral eustachian tubes Neck General: normal visual inspection Resp normal respiratory effort and clear to auscultation bilaterally Cardio regular rate, regular rhythm and no murmurs Psych mental status grossly normal Attitude: calm Activity / Motor Behavior: appropriate eye contact Speech: normal speech Assessment/Plan Assessment/Plan (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 This will be continued as per the patient's medical plan.
[2022-01-11 12:05] VITALS: BP 120/74; BP 126/78; PULSE 51; PULSE 52; RESP 16; RESP 17; TEMP 35.9
[2022-01-12 11:23] VITALS: BP 123/83; BP 128/88; PULSE 51; PULSE 55; RESP 16; TEMP 36.9
--- NOTE | 2022-01-12 12:44 | PCM.HBO.PN ---
History of Present Illness Date of Service: 01/12/22 Chief Complaint: Osteoradionecrosis R jaw History of Wound: This is a 51-year-old white male who recently had his right upper wisdom tooth removed. He then developed an infection and nonhealing at the site. The patient's history is significant for removal of his tonsils by Dr. 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 The patient underwent 7 weeks of radiation therapy. It appears as though the patient's prior exposure to radiation therapy has resulted in soft tissue and deysi radiation injury, the reason for which his recent wisdom tooth extraction failed to heal as expected. He is now undergoing hyperbaric oxygen therapy for osteoradionecrosis and radiation injury which has resulted in the failure of a recent tooth extraction to heal. 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 Progress of Wound: Patient appears to be demonstrating clinical progress. Subjective Subjective The patient presented today for hyperbaric oxygen therapy. Today's session represents the 13th session of the planned 30 such sessions of hyperbaric oxygen therapy. Hyperbaric oxygen therapy was administered as per the facility's protocol. Hyperbaric oxygen therapy was administered at 2 charu for 90 minutes with no air breaks. Patient tolerated hyperbaric oxygen therapy well, without complaints or complications. Upon emergence from the hyperbaric chamber, the patient's vital signs remained stable. He was discharged in good condition. Objective Data Objective Data Vital Signs: Vital Signs Temp Pulse Resp BP 98.4 F 55 L 16 128/88 H 01/12/22 11:23 01/12/22 11:23 01/12/22 11:23 01/12/22 11:23 Exam Physical Exam Const alert, oriented x3, no apparent distress and well nourished General Appearance: cooperative and well developed HEENT normocephalic and EAC's normal Head and Scalp: atraumatic Eyes PERRL and EOMs intact bilaterally Neck no JVD Resp normal respiratory effort and no use of accessory muscles Effort and Inspection: able to speak in complete sentences Psych affect normal Appearance: grossly normal and well kempt Assessment/Plan Assessment/Plan (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
[2022-01-13 11:04] VITALS: BP 125/80; BP 141/82; PULSE 58; PULSE 64; RESP 16; RESP 17; TEMP 36.8
--- NOTE | 2022-01-13 12:31 | PCM.HBO.PN ---
History of Present Illness Date of Service: 01/13/22 Chief Complaint: Osteoradionecrosis R jaw History of Wound: This is a 51-year-old white male who recently had his right upper wisdom tooth removed. He then developed an infection and nonhealing at the site. The patient's history is significant for removal of his tonsils by Dr. 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 The patient underwent 7 weeks of radiation therapy. It appears as though the patient's prior exposure to radiation therapy has resulted in soft tissue and deysi radiation injury, the reason for which his recent wisdom tooth extraction failed to heal as expected. He is now undergoing hyperbaric oxygen therapy for osteoradionecrosis and radiation injury which has resulted in the failure of a recent tooth extraction to heal. 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 Progress of Wound: Patient appears to be demonstrating clinical progress. Subjective Subjective No concerns Objective Data Objective Data 14. Of 30 treatments with HBO vital signs on admission and discharge stable patient will continue with treatments daily as scheduled Vital Signs: Vital Signs Temp Pulse Resp BP 98.2 F 64 17 141/82 H 01/13/22 11:04 01/13/22 11:04 01/13/22 11:04 01/13/22 11:04 Assessment/Plan Assessment/Plan (1) Osteoradionecrosis of jaw: CODE(S): M27.2 - Inflammatory conditions of jaws; Y84.2 - Radiological procedure and radiotherapy as the cause of abnormal reaction of the patient, or of later complication, without mention of misadventure at the time of the procedure (2) Tonsil cancer: CODE(S): C09.9 - Malignant neoplasm of tonsil, unspecified
[2022-01-14 11:10] VITALS: BP 128/86; BP 133/91; PULSE 56; PULSE 62; RESP 16; RESP 17; TEMP 36.7
--- NOTE | 2022-01-14 13:01 | PCM.HBO.PN ---
History of Present Illness Date of Service: 01/14/22 Chief Complaint: Osteoradionecrosis R jaw History of Wound: This is a 51-year-old white male who recently had his right upper wisdom tooth removed. He then developed an infection and nonhealing at the site. The patient's history is significant for removal of his tonsils by Dr. 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 The patient underwent 7 weeks of radiation therapy. It appears as though the patient's prior exposure to radiation therapy has resulted in soft tissue and deysi radiation injury, the reason for which his recent wisdom tooth extraction failed to heal as expected. He is now undergoing hyperbaric oxygen therapy for osteoradionecrosis and radiation injury which has resulted in the failure of a recent tooth extraction to heal. 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 Progress of Wound: Today represents the 15th session of hyperbaric oxygen therapy for radionecrosis of right jaw. Hyperbaric oxygen therapy was administered as per the facility's protocol at 2 SENDY for 90 minutes with no air breaks. Upon emergence from the hyperbaric oxygen chamber, patient's vital signs remained stable. He was discharged in stable condition. Objective Data Objective Data Vital Signs: Vital Signs Temp Pulse Resp BP 98.0 F 62 17 128/86 H 01/14/22 11:10 01/14/22 11:10 01/14/22 11:10 01/14/22 11:10 Exam Physical Exam Const alert, oriented x3 and no apparent distress General Appearance: cooperative, comfortable and well kempt HEENT normocephalic Head and Scalp: normal to inspection Face and Sinus: normal facial exam Tympanic Membrane: other Other Details: Bilateral eustachian tubes Neck General: normal visual inspection Resp normal respiratory effort Neuro oriented x3, CN's II-XII intact bilaterally and moves all extremities Psych mental status grossly normal Attitude: calm Activity / Motor Behavior: appropriate eye contact Speech: normal speech Charges/Coding Wound [facility] Procedures HBO Supervision: [id number] Hyperbaric Oxygen; supervision Assessment/Plan Assessment/Plan (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 This note was generated with [employer] dictation software. It may contain incorrect words, spelling, and punctuation that were not noted in checking the note before signing.
[2022-01-15 09:59] VITALS: BP 111/75; BP 122/89; PULSE 64; PULSE 87; RESP 16; TEMP 36.6
--- NOTE | 2022-01-15 12:36 | PCM.HBO.PN ---
History of Present Illness Date of Service: 01/15/22 Chief Complaint: Osteoradionecrosis R jaw History of Wound: This is a 51-year-old white male who recently had his right upper wisdom tooth removed. He then developed an infection and nonhealing at the site. The patient's history is significant for removal of his tonsils by Dr. 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 The patient underwent 7 weeks of radiation therapy. It appears as though the patient's prior exposure to radiation therapy has resulted in soft tissue and deysi radiation injury, the reason for which his recent wisdom tooth extraction failed to heal as expected. He is now undergoing hyperbaric oxygen therapy for osteoradionecrosis and radiation injury which has resulted in the failure of a recent tooth extraction to heal. 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 Progress of Wound: Today represents the 16th session of hyperbaric oxygen therapy for radionecrosis of right jaw. Hyperbaric oxygen therapy was administered as per the facility's protocol at 2 SENDY for 90 minutes with no air breaks. Upon emergence from the hyperbaric oxygen chamber, patient's vital signs remained stable. He was discharged in stable condition. Objective Data Objective Data Vital Signs: Vital Signs Temp Pulse Resp BP 97.9 F 64 16 122/89 H 01/15/22 09:59 01/15/22 09:59 01/15/22 09:59 01/15/22 09:59 Exam Physical Exam Const alert, oriented x3 and no apparent distress Psych mental status grossly normal, thought process normal, cooperative, affect normal and speech normal Assessment/Plan Assessment/Plan (1) Osteoradionecrosis of jaw: CODE(S): M27.2 - Inflammatory conditions of jaws; Y84.2 - Radiological procedure and radiotherapy as the cause of abnormal reaction of the patient, or of later complication, without mention of misadventure at the time of the procedure (2) Tonsil cancer: CODE(S): C09.9 - Malignant neoplasm of tonsil, unspecified PLAN: The patient appears to be tolerating hyperbaric oxygen therapy well, which will be continued as per their medical treatment plan.
--- NOTE | 2022-01-18 10:36 | PCM.HBO.PN ---
History of Present Illness Date of Service: 01/18/22 Chief Complaint: Osteoradionecrosis R jaw History of Wound: This is a 51-year-old white male who recently had his right upper wisdom tooth removed. He then developed an infection and nonhealing at the site. The patient's history is significant for removal of his tonsils by Dr. 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 The patient underwent 7 weeks of radiation therapy. It appears as though the patient's prior exposure to radiation therapy has resulted in soft tissue and deysi radiation injury, the reason for which his recent wisdom tooth extraction failed to heal as expected. He is now undergoing hyperbaric oxygen therapy for osteoradionecrosis and radiation injury which has resulted in the failure of a recent tooth extraction to heal. 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 Subjective Subjective This patient presents for his 17th hyperbaric oxygen therapy session. Currently there is a planned total of 30 sessions. Hyperbaric oxygen therapy was administered as per the facility's protocol. Hyperbaric oxygen therapy was administered at 2 charu for 90 minutes with no air breaks. Patient tolerated hyperbaric oxygen therapy well, without complaints or complications. Upon emergence from the hyperbaric chamber, the patient's vital signs remained stable. He left in good condition. Objective Data Objective Data Vital Signs: Vital Signs Temp Pulse Resp BP 97.9 F 64 16 122/89 H 01/15/22 09:59 01/15/22 09:59 01/15/22 09:59 01/15/22 09:59 Exam Physical Exam Const alert General Appearance: cooperative HEENT normocephalic Tympanic Membrane: other Other Details: Bilateral eustachian tubes Neck General: normal visual inspection Resp normal respiratory effort and clear to auscultation bilaterally Cardio regular rate, regular rhythm and no murmurs Psych mental status grossly normal Attitude: calm Activity / Motor Behavior: appropriate eye contact Speech: normal speech Assessment/Plan Assessment/Plan (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 This will be continued as per the patient's medical plan.
[2022-01-18 11:31] VITALS: BP 118/85; BP 143/95; PULSE 68; PULSE 79; RESP 16; TEMP 36.4; TEMP 36.8
[2022-01-19 10:26] VITALS: BP 122/73; BP 134/92; PULSE 50; PULSE 59; RESP 16; TEMP 36.6
--- NOTE | 2022-01-19 18:04 | PCM.HBO.PN ---
History of Present Illness Date of Service: 01/19/22 Chief Complaint: Osteoradionecrosis R jaw History of Wound: This is a 51-year-old white male who recently had his right upper wisdom tooth removed. He then developed an infection and nonhealing at the site. The patient's history is significant for removal of his tonsils by Dr. 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 The patient underwent 7 weeks of radiation therapy. It appears as though the patient's prior exposure to radiation therapy has resulted in soft tissue and deysi radiation injury, the reason for which his recent wisdom tooth extraction failed to heal as expected. He is now undergoing hyperbaric oxygen therapy for osteoradionecrosis and radiation injury which has resulted in the failure of a recent tooth extraction to heal. 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 Subjective Subjective Today's hyperbaric oxygen therapy session represents the 18th session of a planned 30 such sessions. Hyperbaric oxygen therapy was administered as per the facility's protocol. Hyperbaric oxygen therapy was administered at 2 charu for 90 minutes with no air breaks. Patient tolerated hyperbaric oxygen therapy well, without complaints or complications. Upon emergence from the hyperbaric chamber, the patient's vital signs remained stable. Patient was discharged in good condition. Objective Data Objective Data Vital Signs: Vital Signs Temp Pulse Resp BP 97.9 F 59 L 16 122/73 H 01/19/22 10:26 01/19/22 10:26 01/19/22 10:26 01/19/22 10:26 Exam Physical Exam Const alert, oriented x3, no apparent distress and well nourished General Appearance: cooperative and well developed HEENT normocephalic and EAC's normal Head and Scalp: atraumatic Eyes PERRL and EOMs intact bilaterally Neck no JVD Resp normal respiratory effort and no use of accessory muscles Effort and Inspection: able to speak in complete sentences Psych affect normal Appearance: grossly normal and well kempt Assessment/Plan Assessment/Plan (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
[2022-01-20 10:51] VITALS: BP 130/82; BP 140/91; PULSE 49; PULSE 57; RESP 16; TEMP 36.2
--- NOTE | 2022-01-20 12:05 | HBO.PN.PCM_ITS ---
History of Present Illness Date of Service: 01/20/22 Chief Complaint: Osteoradionecrosis R jaw History of Wound: This is a 51-year-old white male who recently had his right upper wisdom tooth removed. He then developed an infection and nonhealing at the site. The patient's history is significant for removal of his tonsils by Dr. 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 The patient underwent 7 weeks of radiation therapy. It appears as though the patient's prior exposure to radiation therapy has resulted in soft tissue and deysi radiation injury, the reason for which his recent wisdom tooth extraction failed to heal as expected. He is now undergoing hyperbaric oxygen therapy for osteoradionecrosis and radiation injury which has resulted in the failure of a recent tooth extraction to heal. 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 Subjective Subjective Patient states his jaw is improving with movement and opening less pain. Objective Data Objective Data Patient's vital signs are stable admission and discharge patient will will apply for another 30 treatments of HBO for his radionecrosis of his jaw. Patient has just finished 19 of 30. And is already seeing increase in movement and less pain in the jaw. Still has some numbness in his jaw that he is hoping to get back soon. Vital Signs: Vital Signs Temp Pulse Resp BP 97.2 F L 57 L 16 140/91 H 01/20/22 10:51 01/20/22 10:51 01/20/22 10:51 01/20/22 10:51 Lab / Micro Data Attestation: I reviewed the patient's lab results. Exam Physical Exam Const alert, oriented x3, no apparent distress and well nourished General Appearance: cooperative and well developed HEENT normocephalic and EAC's normal Head and Scalp: atraumatic Eyes PERRL and EOMs intact bilaterally Neck no JVD Resp normal respiratory effort and no use of accessory muscles Effort and Inspection: able to speak in complete sentences Psych affect normal Appearance: grossly normal and well kempt Assessment/Plan Assessment/Plan (1) Osteoradionecrosis of jaw: CODE(S): M27.2 - Inflammatory conditions of jaws; Y84.2 - Radiological procedure and radiotherapy as the cause of abnormal reaction of the patient, or of later complication, without mention of misadventure at the time of the procedure PLAN: Continue with HBO treatments and will apply for 30 more treatments t o continue for his radionecrosis (2) Tonsil cancer: CODE(S): C09.9 - Malignant neoplasm of tonsil, unspecified
[2022-01-21 09:19] VITALS: BP 108/77; BP 124/89; PULSE 63; PULSE 83; RESP 16; RESP 17; TEMP 37
--- NOTE | 2022-01-21 11:45 | HBO.PN.PCM_ITS ---
History of Present Illness Date of Service: 01/21/22 Chief Complaint: Osteoradionecrosis R jaw History of Wound: This is a 51-year-old white male who recently had his right upper wisdom tooth removed. He then developed an infection and nonhealing at the site. The patient's history is significant for removal of his tonsils by Dr. 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 The patient underwent 7 weeks of radiation therapy. It appears as though the patient's prior exposure to radiation therapy has resulted in soft tissue and deysi radiation injury, the reason for which his recent wisdom tooth extraction failed to heal as expected. He is now undergoing hyperbaric oxygen therapy for osteoradionecrosis and radiation injury which has resulted in the failure of a recent tooth extraction to heal. 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 Progress of Wound: Today represents the 20th session of hyperbaric oxygen therapy for radionecrosis of right jaw. Hyperbaric oxygen therapy was administered as per the facility's protocol at 2 SENDY for 90 minutes with no air breaks. Upon emergence from the hyperbaric oxygen chamber, patient's vital signs remained stable. He was discharged in stable condition. Objective Data Objective Data Vital Signs: Vital Signs Temp Pulse Resp BP 98.6 F 63 17 108/77 01/21/22 09:19 01/21/22 09:19 01/21/22 09:19 01/21/22 09:19 Exam Physical Exam Const alert, oriented x3 and no apparent distress General Appearance: cooperative, comfortable and well kempt HEENT normocephalic Head and Scalp: normal to inspection Face and Sinus: normal facial exam Tympanic Membrane: other Other Details: Bilateral eustachian tubes Neck General: normal visual inspection Resp normal respiratory effort Neuro oriented x3, CN's II-XII intact bilaterally and moves all extremities Psych mental status grossly normal Attitude: calm Activity / Motor Behavior: appropriate eye contact Speech: normal speech Charges/Coding Wound Center [facility] Procedures HBO Supervision: [id number] Hyperbaric Oxygen; supervision Assessment/Plan Assessment/Plan (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 This note was generated with [employer] software. It may contain incorrect words, spelling, and punctuation that were not noted in checking the note before signing.
[2022-01-22 11:58] VITALS: BP 117/83; BP 130/88; PULSE 52; PULSE 61; RESP 17; TEMP 36.9
--- NOTE | 2022-01-22 15:01 | HBO.PN.PCM_ITS ---
History of Present Illness Date of Service: 01/22/22 Chief Complaint: Osteoradionecrosis R jaw History of Wound: This is a 51-year-old white male who recently had his right upper wisdom tooth removed. He then developed an infection and nonhealing at the site. The patient's history is significant for removal of his tonsils by Dr. 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 The patient underwent 7 weeks of radiation therapy. It appears as though the patient's prior exposure to radiation therapy has resulted in soft tissue and deysi radiation injury, the reason for which his recent wisdom tooth extraction failed to heal as expected. He is now undergoing hyperbaric oxygen therapy for osteoradionecrosis and radiation injury which has resulted in the failure of a recent tooth extraction to heal. 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 Progress of Wound: Today represents the 21st session of hyperbaric oxygen therapy for radionecrosis of right jaw of 30 planned sessions. Hyperbaric oxygen therapy was administered as per the facility's protocol at 2 SENDY for 90 minutes with no air breaks. Upon emergence from the hyperbaric oxyge n chamber, patient's vital signs remained stable. He was discharged in stable condition. Objective Data Objective Data Vital Signs: Vital Signs Temp Pulse Resp BP 98.4 F 61 17 130/88 H 01/22/22 11:58 01/22/22 11:58 01/22/22 11:58 01/22/22 11:58 Exam Physical Exam Const alert, oriented x3 and no apparent distress Psych mental status grossly normal, thought process normal, cooperative, affect normal and speech normal Assessment/Plan Assessment/Plan (1) Osteoradionecrosis of jaw: CODE(S): M27.2 - Inflammatory conditions of jaws; Y84.2 - Radiological procedure and radiotherapy as the cause of abnormal reaction of the patient, or of later complication, without mention of misadventure at the time of the procedure (2) Tonsil cancer: CODE(S): C09.9 - Malignant neoplasm of tonsil, unspecified PLAN: The patient appears to be tolerating hyperbaric oxygen therapy well, which will be continued as per their medical treatment plan.
[2022-01-25 08:37] VITALS: BP 122/78; BP 126/84; PULSE 49; PULSE 53; RESP 16; TEMP 36.3
--- NOTE | 2022-01-25 09:02 | PCM.HBO.PN ---
History of Present Illness Date of Service: 01/25/22 Chief Complaint: Osteoradionecrosis R jaw History of Wound: This is a 51-year-old white male who recently had his right upper wisdom tooth removed. He then developed an infection and nonhealing at the site. The patient's history is significant for removal of his tonsils by Dr. 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 The patient underwent 7 weeks of radiation therapy. It appears as though the patient's prior exposure to radiation therapy has resulted in soft tissue and deysi radiation injury, the reason for which his recent wisdom tooth extraction failed to heal as expected. He is now undergoing hyperbaric oxygen therapy for osteoradionecrosis and radiation injury which has resulted in the failure of a recent tooth extraction to heal. 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 Subjective Subjective This patient presents for his 22nd hyperbaric oxygen therapy session. Currently there is a planned total of 30 sessions. Hyperbaric oxygen therapy was administered as per the facility's protocol. Hyperbaric oxygen therapy was administered at 2 charu for 90 minutes with no air breaks. Patient tolerated hyperbaric oxygen therapy well, without complaints or complications. Upon emergence from the hyperbaric chamber, the patient's vital signs remained stable. He left in good condition. Objective Data Objective Data Vital Signs: Vital Signs Temp Pulse Resp BP 97.4 F L 53 L 16 122/78 H 01/25/22 08:37 01/25/22 08:37 01/25/22 08:37 01/25/22 08:37 Exam Physical Exam Const alert General Appearance: cooperative HEENT normocephalic Tympanic Membrane: other Other Details: Bilateral eustachian tubes Neck General: normal visual inspection Resp normal respiratory effort and clear to auscultation bilaterally Cardio regular rate, regular rhythm and no murmurs Psych mental status grossly normal Attitude: calm Activity / Motor Behavior: appropriate eye contact Speech: normal speech Assessment/Plan Assessment/Plan (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 This will be continued as per the patient's medical plan.
[2022-01-26 08:30] VITALS: BP 112/73; BP 116/79; PULSE 45; PULSE 52; RESP 16; RESP 17; TEMP 35.8; TEMP 36.4
--- NOTE | 2022-01-26 13:11 | PCM.HBO.PN ---
History of Present Illness Date of Service: 01/26/22 Chief Complaint: Osteoradionecrosis R jaw History of Wound: This is a 51-year-old white male who recently had his right upper wisdom tooth removed. He then developed an infection and nonhealing at the site. The patient's history is significant for removal of his tonsils by Dr. 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 The patient underwent 7 weeks of radiation therapy. It appears as though the patient's prior exposure to radiation therapy has resulted in soft tissue and deysi radiation injury, the reason for which his recent wisdom tooth extraction failed to heal as expected. He is now undergoing hyperbaric oxygen therapy for osteoradionecrosis and radiation injury which has resulted in the failure of a recent tooth extraction to heal. 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 Progress of Wound: Today represents the 23rd session of hyperbaric oxygen therapy for radionecrosis of right jaw. A total of 30 sessions are planned. Hyperbaric oxygen therapy was administered as per the facility's protocol at 2 SENDY for 90 minutes with no air breaks. Hyperbaric oxygen therapy was tolerated well, without complaints or complications. Upon emergence from the hyperbaric oxygen chamber, the patient's vital signs remained stable. He was discharged in stable condition. Objective Data Objective Data Vital Signs: Vital Signs Temp Pulse Resp BP 97.6 F L 52 L 16 116/79 01/26/22 08:30 01/26/22 08:30 01/26/22 08:30 01/26/22 08:30 Exam Physical Exam Const alert, oriented x3, no apparent distress and well nourished General Appearance: cooperative and well developed HEENT normocephalic and EAC's normal Head and Scalp: atraumatic Eyes PERRL and EOMs intact bilaterally Neck no JVD Resp normal respiratory effort and no use of accessory muscles Effort and Inspection: able to speak in complete sentences Psych affect normal Appearance: grossly normal and well kempt Assessment/Plan Assessment/Plan (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
[2022-01-27 08:43] VITALS: BP 120/86; BP 131/85; PULSE 50; PULSE 58; RESP 16; TEMP 36.6
--- NOTE | 2022-01-27 11:42 | PCM.HBO.PN ---
History of Present Illness Date of Service: 01/27/22 Chief Complaint: Osteoradionecrosis R jaw History of Wound: This is a 51-year-old white male who recently had his right upper wisdom tooth removed. He then developed an infection and nonhealing at the site. The patient's history is significant for removal of his tonsils by Dr. 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 The patient underwent 7 weeks of radiation therapy. It appears as though the patient's prior exposure to radiation therapy has resulted in soft tissue and deysi radiation injury, the reason for which his recent wisdom tooth extraction failed to heal as expected. He is now undergoing hyperbaric oxygen therapy for osteoradionecrosis and radiation injury which has resulted in the failure of a recent tooth extraction to heal. 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 Progress of Wound: Today represents the 24th session of hyperbaric oxygen therapy for radionecrosis of right jaw. A total of 30 sessions are planned. Hyperbaric oxygen therapy was administered as per the facility's protocol at 2 SENDY for 90 minutes with no air breaks. Hyperbaric oxygen therapy was tolerated well, without complaints or complications. Upon emergence from the hyperbaric oxygen chamber, the patient's vital signs remained stable. He was discharged in stable condition. Subjective Subjective No concerns at this time Objective Data Objective Data Patient received his 24 of 30 treatments tolerated well vital signs stable admission and discharge Vital Signs: Vital Signs Temp Pulse Resp BP 97.9 F 58 L 16 120/86 H 01/27/22 08:43 01/27/22 08:43 01/27/22 08:43 01/27/22 08:43 Assessment/Plan Assessment/Plan (1) Osteoradionecrosis of jaw: CODE(S): M27.2 - Inflammatory conditions of jaws; Y84.2 - Radiological procedure and radiotherapy as the cause of abnormal reaction of the patient, or of later complication, without mention of misadventure at the time of the procedure PLAN: Continue with HBO treatments and will apply for 30 more treatments to continue for his radionecrosis (2) Tonsil cancer: CODE(S): C09.9 - Malignant neoplasm of tonsil, unspecified
[2022-01-28 10:01] VITALS: BP 121/80; BP 125/81; PULSE 45; PULSE 57; RESP 16; TEMP 36.2
--- NOTE | 2022-01-28 10:27 | PCM.HBO.PN ---
History of Present Illness Date of Service: 01/28/22 Chief Complaint: Osteoradionecrosis R jaw History of Wound: This is a 51-year-old white male who recently had his right upper wisdom tooth removed. He then developed an infection and nonhealing at the site. The patient's history is significant for removal of his tonsils by Dr. 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 The patient underwent 7 weeks of radiation therapy. It appears as though the patient's prior exposure to radiation therapy has resulted in soft tissue and deysi radiation injury, the reason for which his recent wisdom tooth extraction failed to heal as expected. He is now undergoing hyperbaric oxygen therapy for osteoradionecrosis and radiation injury which has resulted in the failure of a recent tooth extraction to heal. 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 Progress of Wound: Today represents the 25th session of hyperbaric oxygen therapy for radionecrosis of right jaw. A total of 30 sessions are planned. Hyperbaric oxygen therapy was administered as per the facility's protocol at 2 SENDY for 90 minutes with no air breaks. Hyperbaric oxygen therapy was tolerated well, without complaints or complications. Upon emergence from the hyperbaric oxygen chamber, the patient's vital signs remained stable. He was discharged in stable condition. Subjective Subjective No new concerns at this time. Objective Data Objective Data Vital Signs: Vital Signs Temp Pulse Resp BP 97.1 F L 57 L 16 125/81 H 01/28/22 10:01 01/28/22 10:01 01/28/22 10:01 01/28/22 10:01 Exam Physical Exam Const alert, oriented x3 and no apparent distress General Appearance: cooperative, comfortable and well kempt HEENT normocephalic Head and Scalp: normal to inspection Face and Sinus: normal facial exam Tympanic Membrane: other Other Details: Bilateral eustachian tubes Neck General: normal visual inspection Resp normal respiratory effort Neuro oriented x3, CN's II-XII intact bilaterally and moves all extremities Psych mental status grossly normal Attitude: calm Activity / Motor Behavior: appropriate eye contact Speech: normal speech Charges/Coding Wound Center CF Procedures HBO Supervision: [id number] Hyperbaric Oxygen; supervision Assessment/Plan Assessment/Plan (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 This note was generated with [employer] software. It may contain incorrect words, spelling, and punctuation that were not noted in checking the note before signing.
--- NOTE | 2022-02-02 09:20 | WC ---
Pt came in today with substantial amount of swelling to the right side of face which was warm and painful. consulted on HBO tx and stated no tx today. also stated this pt needed to be seen by an Oral surgeon [facility] and asked this nurse to attempt to find one for the pt.Pt became emotional confused on who to see for the issue stating he has been given the run around for months. This nurse called several different people to attempt to get an appointment set up before finally getting pt an appointment with Oral surgeon Dr. Urena in [place] for 02/03/22.
== END 2022-02-02 23:59 | disposition home or self-care (01) ==
LOC: WC 08:15
PROVIDERS: Referring Provider Nurse Practitioner; Visit Provider Nurse Practitioner
DX: M27.2 Inflammatory conditions of jaws (principal); C09.9 Malignant neoplasm of tonsil, unspecified; Y84.2 Radiological procedure and radiotherapy as the cause of abnormal reaction of the patient, or of later complication, without mention of misadventure at the time of the procedure
CPT/HCPCS: 99183; G0277

== ENCOUNTER 2022-02-02 19:38 | Inpatient (IN) | payer BC, MEDICAID, SELFPAY ==
[2022-02-02 19:39] VITALS: BP 147/99; PULSE 94; RESP 16; TEMP 38.5; O2SAT 96; BMI 26.8
[2022-02-02] MEDS: 0.9% Normal Saline 1,000 ML 150 ML IV (20:26)
[2022-02-02 20:29] LABS: Absolute Lymphocyte Count 0.76 X10^3/uL (0.83-4.51); Absolute Neutrophil Count 7.3 X10^3/uL (2.0-7.7); Basophil# 0.02 X10^3/uL; Basophil% 0.2 % (0-1); Eosinophil# 0.05 X10^3/uL; Eosinophils% 0.5 % (0-5); Hematocrit 38.8 % (40-54); Hemoglobin 12.7 g/dL (13.0-16.5); Lymphocyte # 0.76 X10^3/ul (0.83-4.51); Lymphocyte % 8.3 % (19-41); Mean Corp Hgb Conc 32.7 g/dL (32-36); Mean Corpuscular Hgb 30.5 pg (27.0-32.0); Mean Platelet Vol. 9.6 fl (6.2-12.0); Monocyte# 1.07 X10^3/uL; Monocyte% 11.6 % (0-10); NRBC Flagged by Analyzer 0 % (0-5); Neutrophil # 7.27 X10^3/uL (2.7-7.7); Neutrophil % 79.1 % (47-70); Platelet Count 232 K/mm3 (150-450); RBC Distribution Width CV 13.3 % (11.6-14.6); RBC Distribution Width SD 45.7 fl (35.1-43.9); Red Blood Count 4.17 M/mm3 (4.6-6.2); White Blood Count 9.2 K/mm3 (4.4-11.0)
--- NOTE | 2022-02-02 20:42 | CT_ITS ---
We are attempting to reach an attending provider to discuss findings. An addendum with communication details will be sent when the communication is complete. INDICATION: pain and right facial swelling EXAMINATION: CT FACIAL BONES - CT Maxillofacial W/ Contrast Injection TECHNIQUE: Helically acquired images were obtained of the facial bones. A radiation dose optimization technique was used for this scan. IV Contrast dosage and agent: 100 mL of ISOVUE-300. COMPARISON: None. FINDINGS: SOFT TISSUES: Right lower face and proximal neck mild anterior neck subcutaneous edema. There is asymmetric right-sided platysmal thickening. There is some stranding density deep to the platysma in the submandibular space. No discrete fluid collections. The right masseter muscle and buccinator muscle are abnormally thickened.. VISUALIZED PARANASAL SINUSES: Clear. VISUALIZED MASTOID AIR CELLS: Clear. Middle ears are clear. FACIAL BONES, MANDIBLE AND TMJs: There is a very dental lucency posterior right mandible, adjacent to the molar tooth with small adjacent periapical lucency. This lucency extends posteriorly and causes some osseous destruction of the right mandible. VISUALIZED DENTITION: No other evidence of periodontal disease. Questionable residual cyst associated with right maxillary molar with tiny residual hyperdensity suggesting small portion residual tooth. This nonexpansile cyst measures roughly 12 mm and is best appreciated on sagittal images. ORBITAL CONTENTS: Both globes, extraocular muscles and retrobulbar fat appear unremarkable. CT/Sinus/Facial Bone WITH Contras IMPRESSION: Aggressive osseous lesion right mandible with overlying significant inflammatory changes right side of the face including the masseter and buccinator muscles. Osseous lesion abuts the posterior left inferior molar with a tiny apical lucency suggesting periodontal disease, versus less likely neoplastic etiology. Electronically Signed: Salazar Berg DO at 21:20 EDT ,
[2022-02-02 20:46] LABS: Anion Gap 6 (5-15); BUN 10 mg/dL (7-18); Calcium,Total 9.1 mg/dL (8.5-10.1); Chloride 108 mmol/L (98-107); EST Glomerular Filtration Rate 84 mL/min (>60); Est Glom Filt Rate - Afr Amer 102 mL/min (>60); Estimated Creatinine Clearance 88.38 ml/min; Glucose 117 mg/dL (74-106); Potassium 3.7 mmol/L (3.5-5.1); Sodium Level 141 mmol/L (136-145)
[2022-02-02 20:50] LABS: Lactic Acid 0.6 mmol/L (0.4-1.9)
[2022-02-02 21:15] VITALS: BP 130/98; PULSE 66; RESP 14; O2SAT 99
[2022-02-02] MEDS: dexAMETHasone 10 MG/ML Vial IV (21:59)
[2022-02-02 22:04] VITALS: BP 129/82; PULSE 77; RESP 16; O2SAT 97
--- NOTE | 2022-02-02 22:12 | PCM.HP.STD ---
HPI - General General Date of Admission: 02/02/22 Date of Service: 02/02/22 Chief Complaint: R Jaw pain, edema. HPI Narrative The patient is a 51 y/o M w/ PMHx: Former tobacco use, Hx Tonsilar Cancer (following tonsil resection ~ [address] 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 Londono who now presents to the [facility] ED on 02/02/22 with history of onset worsening right jaw edema and redness with associated pain with low grade T at home, not improving over the last 48 hours prompting ED evaluation. He notes it is painful 3-4/10 constant dull aching, worse with touch, 5-7/10. Work-up in the ED included T 101.3, HR 94, RR 16, BP 147/99, RR 96% on RA, CBC with WC 9.2, hemoglobin 12.7, platelet 232 with lymphopenia, BMP with chloride 108, glucose 117 otherwise not marked appearing, lactic acid 0.6, CT face and sinus with an aggressive osseous lesion of the right mandible with overlying significant inflammatory changes to the right side of the face including masseter and gluconate or muscles, osseous lesion abuts the posterior left inferior molar with tiny apical lucency suggesting peridental disease versus less likely neoplastic etiology, blood culture x2 pending per ED. In the ED patient administered IV zosyn, NS IVFs, IV decadron. ED discussed case with ENT who will evaluate patient in AM. REPLACED BY [facility] Medical History (Updated 02/02/22 @ 22:[address] Zion Hylton, ) Former tobacco use Osteoradionecrosis of jaw Tonsil cancer Home Medications amoxicillin-pot clavulanate 1 tab PO BID 02/02/22 [History Last Taken Unknown] Allergy/AdvReac Type Severity Reaction Status Date / Time No Known Allergies Allergy Verified 02/02/22 19:39 Family History (Updated 02/02/22 @ 22:[address] Taylor Odonnell MD) Father Diabetes Mother Hypertension Surgical History (Updated 02/02/22 @ 22:[address] Taylor Odonnell MD) History of placement of ear tubes S/P tonsillectomy and adenoidectomy [place] teeth extracted Social History (Updated 02/02/22 @ 22:[address] Taylor Odonnell MD) household members: none Smoking Status: Former smoker how long ago did patient quit smoking: Smoked and also chew tobacco, quit tobacco 1991, quit chew 2019. alcohol intake: never substance use type: does not use ROS ROS Narrative Admission Review of Systems: CONSTITUTIONAL: No weight loss, +low grade fever, weakness or fatigue. HEENT: + R jaw pain, edema. Eyes: No visual loss, blurred vision, double vision or yellow sclerae. Ears, Nose, Throat: No hearing loss, sneezing, congestion, runny nose or sore throat. SKIN: + R facial redness. CARDIOVASCULAR: No chest pain, chest pressure or chest discomfort, palpitations, edema, orthopnea, syncopal events. RESPIRATORY: No shortness of breath, cough or sputum, wheezing, hemoptysis. GASTROINTESTINAL: + anorexia, No nausea, vomiting or diarrhea, abdominal pain, melena, BRBPR. GENITOURINARY: No dysuria, frequency, urgency or retention. NEUROLOGICAL: No headache, dizziness, syncope, paralysis, ataxia, numbness or tingling in the extremities, focal weakness, change in bowel or bladder control, seizure. MUSCULOSKELETAL: + muscle, back pain, joint pain or stiffness. HEMATOLOGIC: + anemia, bleeding or bruising. LYMPHATICS: No enlarged nodes. No history of splenectomy. PSYCHIATRIC: No history of depression or anxiety. ENDOCRINOLOGIC: No reports of sweating, cold or heat intolerance. No polyuria or polydipsia. ALLERGIES: No history of asthma, hives, eczema or rhinitis. Vital Signs Vital Signs Vital Signs: 02/02/22 19:39 02/02/22 21:15 02/02/22 22:04 Temperature 101.3 F H Temperature Source Temporal Pulse Rate 94 66 77 Respiratory Rate 16 14 16 Blood Pressure 147/99 H 130/98 H 129/82 H Blood Pressure Mean 115 108 97 Pulse Ox 96 99 97 Oxygen Delivery Method Room Air Room Air Room Air Weight Weight: 181 lb 9.6 oz Body Mass Index (BMI) 26.8 Physical Exam Narrative Physical Examination: General: Awake, alert, oriented x 3 and cooperative, initially walking in the ED room, seated upright eventually in the bed, notes ongoing right jaw pain but currently improved Skin: Normal color, normal turgor, no icterus, no cyanosis except for significant right jaw swelling with right facial erythema, warm to touch. HEENT: AT/NC, EOMI, PERRLA, dry MM, no carotid bruits or JVD noted, difficulty opening his mouth secondary to significant right jaw edema, right facial erythema overlying that region, warm to touch, mildly indurated, no obvious ballotable regions. Lungs: Diminished, greater bases, poor effort, no rales, ronchi or wheezing. Heart: Currently regular rate and rhythm; no gallop, rub audible. Abdomen: Soft, NTTP, ND, mildly hyperactive BS, no HSM. Extremities: No cyanosis, clubbing, or edema. Neurological: Patient awake, alert, oriented as noted, cognitive function intact; pupils equally reactive to light and accommodation, cranial nerves II-XII grossly normal, moving all 4 extremities, no focal deficits, strength preserved, moving around in the room with ease despite acute presentation. Psychiatric: Affect appears mildly uncomfortable and fatigued, no acute evidence of depressive or anxiety feelings. Results Lab / Micro Data Result Diagrams: 02/02/22 20:05 02/02/22 20:05 Labs: Laboratory Results - last 24 hr 02/02/22 20:05: WBC 9.2, RBC 4.17 L, Hgb 12.7 L, Hct 38.8 L, MCV 93.0, MCH 30.5, MCHC 32.7, RDW Std Deviation 45.7 H, RDW Coeff of Vito 13.3, Plt Count 232, MPV 9.6, Immature Gran % (Auto) 0.300, Neut % (Auto) 79.1 H, Lymph % (Auto) 8.3 L, [place] % (Auto) 11.6 H, Eos % (Auto) 0.5, Baso % (Auto) 0.2, Absolute Neuts (auto) 7.3, Absolute Lymphs (auto) 0.76 L, Nucleated RBC % 0 02/02/22 20:05: Sodium 141, Potassium 3.7, Chloride 108 H, Carbon Dioxide 27.0, Anion Gap 6, BUN 10, Creatinine 1.00, Estim Creat Clear Calc 88.38, Est GFR (MDRD) Af Amer 102, Est GFR (MDRD) Non-Af 84, BUN/Creatinine Ratio 10.0, Glucose 117 H, Calcium 9.1 02/02/22 20:05: Lactic Acid 0.6 Radiology Impression Facial/Sinus 02/02/22 20:42 IMPRESSION: Aggressive osseous lesion right mandible with overlying significant inflammatory changes right side of the face including the masseter and buccinator muscles. Osseous lesion abuts the posterior left inferior molar with a tiny apical lucency suggesting periodontal disease, versus less likely neoplastic etiology. Electronically Signed: Salazar eBrg DO at 21:20 EDT , ADDENDUM: 02/02/222132 IMPRESSION: Aggressive osseous lesion right mandible with overlying significant inflammatory changes right side of the face including the masseter and buccinator muscles. Osseous lesion abuts the posterior left inferior molar with a tiny apical lucency suggesting periodontal disease, versus less likely neoplastic etiology. N.B. : The above Results were Read Back by Salazar Berg DO to Dr. Zion Hylton MD, and understanding confirmed on 02/02/2022 21:26:41 (ET). Electronically Signed: Salazar Berg DO at 21:20 EDT , Assessment & Plan Assessment/Plan (1) Osteoradionecrosis of jaw: PLAN: The patient is a 51 y/o M w/ PMHx: Former tobacco use, Hx Tonsilar Cancer (following tonsil resection ~ [address] Londono noted on pathology, s/p 7 weeks radiation) following at [facility] with most recent evaluation 01/28/22 for osteoradionecrosis of the R jaw who now presents to the [facility] ED on 02/02/22 with history of onset worsening right jaw edema and redness with associated pain with low grade T at home, not improving prompting ED evaluation. #1. Infected R Jaw Wound complicated by underlying osteoradionecrosis of the R jaw: Will admit to [facility], maintain on IV vanc and zosyn pending MRSA screen w/ de-escalation off vanc if MRSA screen negative, Bld Cx pending per ED, ENT consulted per ED and will be continued, plan repeat CBC in AM, continue head elevation, monitor erythema outline with VS checks, continue PRN pain and antiemetic regimen, NPO status pending further surgery evaluation and AM re-assessment, maintain on IVF, PPI. #2. History tonsillar cancer: Status post tonsil resection approximately [address] Livingston specifically noted on pathology, status post 7 weeks of radiation, unfortunately osteoradionecrosis of the right jaw as a result most likely, had been considered in remission. #3. Former tobacco use: Encouraged continued tobacco cessation and chew tobacco cessation. #4. DVT prophylaxis: SCDs, defer chemoprophylaxis pending evaluation for #1. Charges/Coding Visit Charges Inpatient E&M: 82083 Init Hosp L3
--- NOTE | 2022-02-02 22:24 | EDS_ITS ---
HPI History of Present Illness Chief Complaint: Wound Detail of Chief Complaint: Redness and swelling to right side of face Informant: patient Narrative Narrative: Patient presents with right-sided redness and swelling of his face that started yesterday. Patient has history of a nonhealing wound after a dental extraction to the right mandible and has been receiving hyperbaric therapy. Patient has had intermittent episodes of redness and swelling to the right side of his face but nothing to this extent today. Patient also has a fever. Patient having hard time opening his mouth. Patient has remote history of tonsil cancer in 2019 for which she underwent radiation and chemo therapy. He was told he has osteoradionecrosis of the mandible. Prior similar symptoms: Yes PFSH [facility] Medical History (Updated 02/02/22 @ 22:[address] Zion Hylton DO) Osteoradionecrosis of jaw Tonsil cancer Home Medications amoxicillin-pot clavulanate 1 tab PO BID 02/02/22 [History Last Taken Unknown] Allergy/AdvReac Type Severity Reaction Status Date / Time No Known Allergies Allergy Verified 02/02/22 19:39 Family History (Updated 11/25/21 @ 09:36 by Whit Blackwood NP, CHAMFERING MACHINE OPERATOR-C) Father Diabetes Surgical History (Updated 02/02/22 @ 22:[address] Taylor Odonnell MD) S/P tonsillectomy and adenoidectomy [place] teeth extracted Social History Smoking Status: Former smoker ROS ROS ED Constitutional Constitutional ED: Reports systems reviewed and no addt'l complaints, except as documented; Denies body ache(s), change in weight or chills Eyes Eyes: Denies acute decrease in peripheral vision, change in vision, double vision or loss of vision ENT ENT ED: Reports none and other Details: Right facial redness and swelling ; Denies ear pain, lip swelling, loss taste/smell, neck pain, otalgia or sore throat Cardiovascular Cardiovascular: Reports none; Denies abdominal pain, chest pain with activity, leg edema, lightheadedness, palpitations, rapid heart rate or syncope Respiratory/Chest Respiratory/Chest: Reports none; Denies change in mental status, dry cough, dyspnea, hemoptysis, shortness of breath at rest or shortness of breath with exertion Gastrointestinal Gastrointestinal: Reports none; Denies abdominal pain, change in stool character, diarrhea, hematemesis, hematochezia, melena, rectal bleeding or vomiting Genitourinary Genitourinary ED: Reports none; Denies abdominal discomfort, anuria, dysuria, genital pain or polyuria Musculoskeletal Musculoskeletal: Reports none; Denies arthralgias, back pain, difficulty walking, extremity pain, muscle weakness or myalgias Integumentary Reports none; Denies abscess or rash Neurologic Neurologic: Reports none; Denies abnormal gait, confusion, focal weakness, frequent falls, headache(s), loss of vision, numbness, paresthesias, radicular pain, vertigo or weakness Psychiatric Psychiatric: Reports systems reviewed and no addt'l complaints, except as documented and none; Denies behavioral changes, confusion, difficulty concentrating, hallucinations, suicidal ideation, tactile hallucinations or visual hallucinations Endocrine Endocrinology: Denies none, cold intolerance, excessive sweating, fatigue or heat intolerance Hematologic/Lymphatic Hematologic/Lymphatic: Reports none; Denies anemia, easy bleeding or easy bruising Allergic/Immunologic Allergic/Immunologic ED: Denies as per HPI, none, lip swelling, mouth swelling, throat swelling, tongue swelling or hives EXAM Physical Exam Const Vital Signs: 02/02/22 19:39 02/02/22 21:15 02/02/22 22:04 Temperature 101.3 F H Temperature Source Temporal Pulse Rate 94 66 77 Respiratory Rate 16 14 16 Blood Pressure 147/99 H 130/98 H 129/82 H Blood Pressure Mean 115 108 97 Pulse Ox 96 99 97 Oxygen Delivery Method Room Air Room Air Room Air Positive well nourished and well developed General Appearance ED: well developed and NAD HEENT Reports TM's clear and moist mucous membranes HEENT Narrative: Patient with redness and swelling to the right side of the face with fullness and induration of the area over the right parotid and right submandibular region of his face. Patient has trismus with difficulty opening mouth more than 2 cm. normocephalic and atraumatic; Negative for trauma or tenderness Tympanic Membrane ED: Yes TM's clear Eyes PERRL and EOMs intact bilaterally General Eye ED: Negative for pale conjunctiva or scleral icterus Neck no lymphadenopathy, supple and no JVD General: Negative for tenderness Chest Wall inspection of chest normal and palpation of chest normal Chest: Negative for tenderness Resp normal respiratory effort and clear to auscultation bilaterally Effort and Inspection: Negative for respiratory distress or pain with movement Auscultation: Negative for rhonchi, wheezes or diminished lung sounds Cardio regular rate, regular rhythm, S1 normal heart sound, S2 normal heart sound and no murmurs Peripheral Pulses: pulses 2+ throughout GI normal to inspection, nondistended, normoactive bowel sounds, soft to palpation, non-tender, non-distended and no masses Back/Spine no CVA tenderness and no thoracic nor lumbar tenderness Extremity normal to inspection General Extremety ED: Negative for edema General Extremity: Negative for edema Neuro oriented x3, CN's II-XII intact bilaterally, no sensory deficits noted and gait normal Sensorium / Orientation: awake, alert, oriented to person, oriented to place and oriented to time Motor Exam: strength 5/5 throughout and strength abnormal Psych mental status grossly normal Skin no rashes or lesions noted and no wounds MDM MDM MDM Narrative Medical decision making narrative: IV line established. Patient was started on Zosyn 4.5 g IV. Lab work-up was unremarkable. CT scan of the face showed an aggressive osseous lesion of the right mandible with overlying significant inflammatory change right side of face including masseter and use sarah muscles. I discussed case with ENT Dr. Mahajan as patient has been seeing Dr. Froilan Londono regularly for follow-ups regarding his tonsillar cancer. Case also discussed with hospitalist who will evaluate patient for admission. Patient will also received 1 dose of Decadron. Lab Data Attestation: I reviewed the patient's lab results. Labs: Laboratory Results - last 24 hr 02/02/22 02/02/22 02/02/22 20:05 20:05 20:05 WBC 9.2 RBC 4.17 L Hgb 12.7 L Hct 38.8 L MCV 93.0 MCH 30.5 MCHC 32.7 RDW Std Deviation 45.7 H RDW Coeff of Vito 13.3 Plt Count 232 MPV 9.6 Immature Gran % (Auto) 0.300 Neut % (Auto) 79.1 H Lymph % (Auto) 8.3 L [place] % (Auto) 11.6 H Eos % (Auto) 0.5 Baso % (Auto) 0.2 Absolute Neuts (auto) 7.3 Absolute Lymphs (auto) 0.76 L Nucleated RBC % 0 Sodium 141 Potassium 3.7 Chloride 108 H Carbon Dioxide 27.0 Anion Gap 6 BUN 10 Creatinine 1.00 Estim Creat Clear Calc 88.38 Est GFR (MDRD) Af Amer 102 Est GFR (MDRD) Non-Af 84 BUN/Creatinine Ratio 10.0 Glucose 117 H Lactic Acid 0.6 Calcium 9.1 Radiography Diagnostic Testing: Clinical Impression(s) from Imaging Studies Facial/Sinus 02/02/22 20:42 IMPRESSION: Aggressive osseous lesion right mandible with overlying significant inflammatory changes right side of the face including the masseter and buccinator muscles. Osseous lesion abuts the posterior left inferior molar with a tiny apical lucency suggesting periodontal disease, versus less likely neoplastic etiology. Electronically Signed: Salazar Berg DO at 21:20 EDT , ADDENDUM: 02/02/222132 IMPRESSION: Aggressive osseous lesion right mandible with overlying significant inflammatory changes right side of the face including the masseter and buccinator muscles. Osseous lesion abuts the posterior left inferior molar with a tiny apical lucency suggesting periodontal disease, versus less likely neoplastic etiology. N.B. : The above Results were Read Back by Salazar Berg DO to Dr. Zion Hylton MD, and understanding confirmed on 02/02/2022 21:26:41 (ET). Electronically Signed: Salazar Berg DO at 21:20 EDT , Discharge Plan Triage Chief Complaint: Wound ED Provider: Zion Hylton Dx/Rx/DC Orders Clinical Impression: Cellulitis, face, Osteoradionecrosis Prescriptions: No Action amoxicillin-pot clavulanate 875-125 mg tablet 1 tab PO BID RF: 0 Primary Care Provider: Care Physician,No Primary Referrals: Care Physician,No Primary [Primary Care Provider] - Disposition Disposition: Acute Care [facility]
[2022-02-02 22:33] VITALS: BP 129/87; PULSE 77; RESP 16; TEMP 37.1; O2SAT 97
[2022-02-02 22:56] VITALS: BMI 26.1
[2022-02-02 23:02] VITALS: BP 147/93; PULSE 74; RESP 16; TEMP 37.2; O2SAT 97
[2022-02-03] MEDS: 0.9% Normal Saline 1,000 ML 125 ML IV ×4 (00:13→23:57)
[2022-02-03] MEDS: Pantoprazole Sodium 20 MG Tablet PO ×3 (00:13→20:48)
--- NOTE | 2022-02-03 00:32 | PCM.RX.CS ---
Consult Pharmacy has been consulted to manage selected antiobiotic: Vancomycin Type of Consult: New start Suspected Infection: Other Prior Doses of Antibiotics Received/Current Regimen: Medications Vancomycin HCl 1,500 mg/ (Sodium Chloride) 530 mls @ 250 mls/hr IV Q12H VEGA Vancomycin HCl 2,000 mg/ (Sodium Chloride) 540 mls @ 250 mls/hr IV X1 ONE Stop: 02/03/22 01:39 Last Admin: 02/03/22 00:13 Dose: 250 mls/hr Labs: Sodium 141 mmol/L (136-145) 02/02/22 20:05 Potassium 3.7 mmol/L (3.5-5.1) 02/02/22 20:05 Chloride 108 mmol/L (98-107) H 02/02/22 20:05 Carbon Dioxide 27.0 mmol/L (21.0-32.0) 02/02/22 20:05 Anion Gap 6 (5-15) 02/02/22 20:05 BUN 10 mg/dL (7-18) 02/02/22 20:05 Creatinine 1.00 mg/dL (0.70-1.30) 02/02/22 20:05 Est GFR (MDRD) Af Amer 102 mL/min (>60) 02/02/22 20:05 Est GFR (MDRD) Non-Af 84 mL/min (>60) 02/02/22 20:05 BUN/Creatinine Ratio 10.0 RATIO (10-20) 02/02/22 20:05 Glucose 117 mg/dL (74-106) H 02/02/22 20:05 Weight used for dosin.3 kg Estimated Creatinine Clearance: 88 Goal Trough: 15-20 mcg/mL Pharmacy Plan for Drug Dosing: Pharmacy Service will continue to monitor and adjust dosing as required. Follow-Up Labs: Trough Vancomycin Labs to be done on [date and time ordered]: 02/04/22 @1133
[2022-02-03 01:10] VITALS: O2SAT 97
[2022-02-03 05:15] VITALS: BP 104/66; PULSE 62; RESP 16; TEMP 36.4; O2SAT 94
[2022-02-03 07:25] LABS: Absolute Lymphocyte Count 0.34 X10^3/uL (0.83-4.51); Absolute Neutrophil Count 6.8 X10^3/uL (2.0-7.7); Basophil# 0.01 X10^3/uL; Basophil% 0.1 % (0-1); Differential Indicated SCAN CRITERIA MET; Hematocrit 35.7 % (40-54); Hemoglobin 11.7 g/dL (13.0-16.5); Lymphocyte # 0.34 X10^3/ul (0.83-4.51); Lymphocyte % 4.6 % (19-41); Mean Corp Hgb Conc 32.8 g/dL (32-36); Mean Corpuscular Hgb 30.5 pg (27.0-32.0); Mean Platelet Vol. 9.9 fl (6.2-12.0); Monocyte# 0.33 X10^3/uL; Monocyte% 4.4 % (0-10); NRBC Flagged by Analyzer 0 % (0-5); Neutrophil # 6.76 X10^3/uL (2.7-7.7); Neutrophil % 90.5 % (47-70); POSITIVE DIFFERENTIAL YES; Platelet Count 203 K/mm3 (150-450); RBC Distribution Width CV 13.2 % (11.6-14.6); RBC Distribution Width SD 45.2 fl (35.1-43.9); Red Blood Count 3.84 M/mm3 (4.6-6.2); White Blood Count 7.5 K/mm3 (4.4-11.0)
[2022-02-03 07:36] VITALS: O2SAT 95
[2022-02-03 08:12] LABS: AST(SGOT) 10 U/L (15-37); Alanine Aminotransfer ALT/SGPT 18 U/L (16-61); Albumin, Serum 3.4 g/dL (3.2-5.0); Alkaline Phosphatase 60 U/L (45-117); Anion Gap 4 (5-15); BUN 9 mg/dL (7-18); BUN/Creat Ratio 10.9 RATIO (10-20); Calcium,Total 9.3 mg/dL (8.5-10.1); Chloride 111 mmol/L (98-107); Creatinine, Serum 0.83 mg/dL (0.70-1.30); EST Glomerular Filtration Rate 104 mL/min (>60); Est Glom Filt Rate - Afr Amer 126 mL/min (>60); Estimated Creatinine Clearance 106.48 ml/min; Globulin 3.4 g/dL (2.2-4.2); Glucose 162 mg/dL (74-106); Potassium 4.1 mmol/L (3.5-5.1); Protein, Total 6.8 g/dL (6.4-8.2); Sodium Level 140 mmol/L (136-145)
--- NOTE | 2022-02-03 08:22 | CON.PCM_ITS ---
Assessment & Plan Assessment/Plan (1) Osteoradionecrosis of jaw: PLAN: 51 year old male s/p RETAIL POS SPECIALIST for oropharyngeal carcinoma with resultant osteoradionecrosis and subsequent pathologic fracture -dramatically better on IV antibiotics -given his very large right ascending ramus sequestrum and pathologic fracture, this will require eventual surgical therapy with either excision and external fixation staged with a fibular free-flap or simultaneous reconstruction. this will be at a tertiary care center. -in the mean time, he will either need significant antibiotic therapy to prevent recurrence of fitness sales associate space infection. -after discharge, he may call [facility] to set up tertiary referral. HPI Consult Data Date of Consult: 02/03/22 HPI Narrative HPI Narrative: KAYA SCHILLING, is a 51 M s/p RETAIL POS SPECIALIST roughly two years ago for a primary tonsillar carcinoma. 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 he presented to the ED with exacerbation of his recent in fection which failed augmentin x 2. CT demonstrated a fitness sales associate space infection on the right with slight lateral pharyngeal wall fullness but no deep neck collection. he has osteoradionecrosis with a pathologic fracture of the ascending ramus. WBC normal, afebrile. dramatic subjective improvement after IV antibiotics. denies dys/odynophagia, no dyspnea. normal voice. [facility] Medical History (Updated 02/02/22 @ 22:[address] Taylor Odonnell MD) Former tobacco use Osteoradionecrosis of jaw Tonsil cancer Home Medications amoxicillin-pot clavulanate 1 tab PO BID 02/02/22 [History Last Taken Unknown] Allergy/AdvReac Type Severity Reaction Status Date / Time No Known Allergies Allergy Verified 02/02/22 19:39 Family History (Updated 02/02/22 @ 22:[address] Taylor Odonnell MD) Father Diabetes Mother Hypertension Surgical History (Updated 02/02/22 @ 22:[address] Taylor Odonnell MD) History of placement of ear tubes S/P tonsillectomy and adenoidectomy [place] teeth extracted Social History (Updated 02/02/22 @ 22:[address] Taylor Odonnell MD) household members: none Smoking Status: Former smoker how long ago did patient quit smoking: Smoked and also chew tobacco, quit tobacco 1991, quit chew 2019. alcohol intake: never substance use type: does not use ROS ROS Narrative as per HPI Physical Exam Const alert General Appearance: cooperative HEENT HEENT Narrative: trismus. oropharyngeal mucosa s/p RT but otherwise unremarkable. right level 2 and masseter fullness. no erythema today. Lab / Micro Data Result Diagrams: 02/03/22 06:40 02/03/22 06:40 Labs: Laboratory Results - last 24 hr 02/02/22 20:05: WBC 9.2, RBC 4.17 L, Hgb 12.7 L, Hct 38.8 L, MCV 93.0, MCH 30.5, MCHC 32.7, RDW Std Deviation 45.7 H, RDW Coeff of Vito 13.3, Plt Count 232, MPV 9.6, Immature Gran % (Auto) 0.300, Neut % (Auto) 79.1 H, Lymph % (Auto) 8.3 L, [place] % (Auto) 11.6 H, Eos % (Auto) 0.5, Baso % (Auto) 0.2, Absolute Neuts (auto) 7.3, Absolute Lymphs (auto) 0.76 L, Nucleated RBC % 0 02/02/22 20:05: Sodium 141, Potassium 3.7, Chloride 108 H, Carbon Dioxide 27.0, Anion Gap 6, BUN 10, Creatinine 1.00, Estim Creat Clear Calc 88.38, Est GFR (MDRD) Af Amer 102, Est GFR (MDRD) Non-Af 84, BUN/Creatinine Ratio 10.0, Glucose 117 H, Calcium 9.1 02/02/22 20:05: Lactic Acid 0.6 02/03/22 06:40: WBC 7.5, RBC 3.84 L, Hgb 11.7 L, Hct 35.7 L, MCV 93.0, MCH 30.5, MCHC 32.8, RDW Std Deviation 45.2 H, RDW Coeff of Vito 13.2, Plt Count 203, MPV 9.9, Immature Gran % (Auto) 0.400, Neut % (Auto) 90.5 H, Lymph % (Auto) 4.6 L, [place] % (Auto) 4.4, Eos % (Auto) 0.0, Baso % (Auto) 0.1, Absolute Neuts (auto) 6.8, Absolute Lymphs (auto) 0.34 L, Nucleated RBC % 0 06/01/22 06:40: Sodium 140, Potassium 4.1, Chloride 111 H, Carbon Dioxide 25.0, Anion Gap 4 L, BUN 9, Creatinine 0.83, Estim Creat Clear Calc 106.48, Est GFR (MDRD) Af Amer 126, Est GFR (MDRD) Non-Af 104, BUN/Creatinine Ratio 10.9, Glucose 162 H, Calcium 9.3, Total Bilirubin 0.90, AST 10 L, ALT 18, Alkaline Phosphatase 60, Total Protein 6.8, Albumin 3.4, Globulin 3.4, Albumin/Globulin Ratio 1.0 Radiology Impression Facial/Sinus 02/02/22 20:42 IMPRESSION: Aggressive osseous lesion right mandible with overlying significant inflammatory changes right side of the face including the masseter and buccinator muscles. Osseous lesion abuts the posterior left inferior molar with a tiny apical lucency suggesting periodontal disease, versus less likely neoplastic etiology. Electronically Signed: Salazar Berg DO at 21:20 EDT , ADDENDUM: 02/02/222132 IMPRESSION: Aggressive osseous lesion right mandible with overlying significant inflammatory changes right side of the face including the masseter and buccinator muscles. Osseous lesion abuts the posterior left inferior molar with a tiny apical lucency suggesting periodontal disease, versus less likely neoplastic etiology. N.B. : The above Results were Read Back by Salazar Berg DO to Dr. Zion Hylton MD, and understanding confirmed on 02/02/2022 21:26:41 (ET). Electronically Signed: Salazar Berg DO at 21:20 EDT ,
[2022-02-03 11:08] VITALS: BP 141/86; PULSE 57; RESP 16; TEMP 36.6; O2SAT 99
--- NOTE | 2022-02-03 11:39 | PCM.PN.HOSP ---
Subjective Subjective Patient seen and examined. His father was by his bedside. His right jaw swelling had improved significantly. He denied any fever, chills, nausea, vomiting, or difficulty eating or swallowing. Review of systems is otherwise negative. Objective Data Objective Data Vital Signs: Vital Signs Temp Pulse Resp BP Pulse Ox 97.9 F 57 L 16 141/86 H 99 02/03/22 11:08 02/03/22 11:08 02/03/22 11:08 02/03/22 11:08 02/03/22 11:08 Oxygen Delivery Method Room Air Weight: 178 lb 12.718 oz Body Mass Index (BMI) 26.1 Intake & Output: Intake and Output for Last 24 Hours 02/01/22 02/02/22 02/03/22 23:59 23:59 23:59 Intake Total 100 / 580 2997.5 / 2997.5 Balance 100 / 580 2997.5 / 2997.5 Lab / Micro Data Result Diagrams: 02/03/22 06:40 02/03/22 06:40 Labs: Laboratory Results - last 24 hr 02/02/22 20:05: WBC 9.2, RBC 4.17 L, Hgb 12.7 L, Hct 38.8 L, MCV 93.0, MCH 30.5, MCHC 32.7, RDW Std Deviation 45.7 H, RDW Coeff of Vito 13.3, Plt Count 232, MPV 9.6, Immature Gran % (Auto) 0.300, Neut % (Auto) 79.1 H, Lymph % (Auto) 8.3 L, [place] % (Auto) 11.6 H, Eos % (Auto) 0.5, Baso % (Auto) 0.2, Absolute Neuts (auto) 7.3, Absolute Lymphs (auto) 0.76 L, Nucleated RBC % 0 02/02/22 20:05: Sodium 141, Potassium 3.7, Chloride 108 H, Carbon Dioxide 27.0, Anion Gap 6, BUN 10, Creatinine 1.00, Estim Creat Clear Calc 88.38, Est GFR (MDRD) Af Amer 102, Est GFR (MDRD) Non-Af 84, BUN/Creatinine Ratio 10.0, Glucose 117 H, Calcium 9.1 02/02/22 20:05: Lactic Acid 0.6 02/03/22 06:40: WBC 7.5, RBC 3.84 L, Hgb 11.7 L, Hct 35.7 L, MCV 93.0, MCH 30.5, MCHC 32.8, RDW Std Deviation 45.2 H, RDW Coeff of Vito 13.2, Plt Count 203, MPV 9.9, Immature Gran % (Auto) 0.400, Neut % (Auto) 90.5 H, Lymph % (Auto) 4.6 L, [place] % (Auto) 4.4, Eos % (Auto) 0.0, Baso % (Auto) 0.1, Absolute Neuts (auto) 6.8, Absolute Lymphs (auto) 0.34 L, Nucleated RBC % 0 02/03/22 06:40: Sodium 140, Potassium 4.1, Chloride 111 H, Carbon Dioxide 25.0, Anion Gap 4 L, BUN 9, Creatinine 0.83, Estim Creat Clear Calc 106.48, Est GFR (MDRD) Af Amer 126, Est GFR (MDRD) Non-Af 104, BUN/Creatinine Ratio 10.9, Glucose 162 H, Calcium 9.3, Total Bilirubin 0.90, AST 10 L, ALT 18, Alkaline Phosphatase 60, Total Protein 6.8, Albumin 3.4, Globulin 3.4, Albumin/Globulin Ratio 1.0 Radiography Diagnostic Testing: Radiology Impression Facial/Sinus 02/02/22 20:42 IMPRESSION: Aggressive osseous lesion right mandible with overlying significant inflammatory changes right side of the face including the masseter and buccinator muscles. Osseous lesion abuts the posterior left inferior molar with a tiny apical lucency suggesting periodontal disease, versus less likely neoplastic etiology. Electronically Signed: Salazar Berg DO at 21:20 EDT , ADDENDUM: 02/02/222132 IMPRESSION: Aggressive osseous lesion right mandible with overlying significant inflammatory changes right side of the face including the masseter and buccinator muscles. Osseous lesion abuts the posterior left inferior molar with a tiny apical lucency suggesting periodontal disease, versus less likely neoplastic etiology. N.B. : The above Results were Read Back by Salazar Berg DO to Dr. Zion Hylton MD, and understanding confirmed on 02/02/2022 21:26:41 (ET). Electronically Signed: Salazar Berg, DO at 21:20 EDT , Physical Exam Const alert, oriented x3 and no apparent distress Exam Limitations: no limitations HEENT head/scalp atraumatic, moist oral mucous membranes and oropharynx normal HEENT Narrative: firm right jaw swelling, with minimal warmth, no erythema. Head and Scalp: normocephalic Eyes PERRL and EOMs intact bilaterally Neck no lymphadenopathy Resp normal respiratory effort, no retractions, no use of accessory muscles and clear to auscultation bilaterally Cardio regular rate, regular rhythm, S1 normal heart sound, S2 normal heart sound and no murmurs GI normal to inspection, nondistended, normoactive bowel sounds, soft to palpation, non-tender and non-distended Extremity normal to inspection, full ROM and no clubbing, cyanosis or edema Peripheral Pulses: Yes pulses 2+ throughout Skin no rashes or lesions noted Neuro oriented x3 Sensorium / Orientation: awake and alert Psych affect normal Assessment & Plan Assessment/Plan (1) Cellulitis, face: (2) Osteoradionecrosis: PLAN: #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 THis will need to be done at a tertiary facility continue IV antibiotics- zosyn ENT on badylan #History of primary tonsilar carcinoma' has had to deal with recurrent branding machine tender space infections completed 25out of [address] shows branding machine tender space infection on the right with slight lateral pharyngeal wall fullness but no deep neck collection ENT on board #DVT prophylaxis: SCDs Charges/Coding Visit Charges Inpatient E&M: 95087 Subs Hosp L2
[2022-02-03 13:20] LABS: M R Staph aureus DNA By PCR Negative (Negative); Probe Check PASS; Specimen Processing Control PASS; Staph aureus DNA By PCR NEGATIVE (Negative)
--- NOTE | 2022-02-03 13:35 | CASEMGMT ---
RN CM NUT ORCHARDIST CM to room to meet with patient for initial transition planning/care coordination assessment. INEZ PEREZ introduced self and role at [facility]. Pt voices understanding and consents to assessment at this time. Pt resting in bed in no distress at this time. Pt is A/O at this time and answers all questions appropriately. Care providers, pharmacy, and demographics verified/updated at this time. PCP: Pt states he was just accepted as a new pt w/Dr Lozano. Has 1st appt scheduled for March 24, which is their 1st available appt, per pt report. Specialists: Dr Huynh-oncology, Dr Londono--ENT [facility]'s. Pt had an appt scheduled for today w/Dr Urena in [facility] (oral surgeon) for consultation. Pt states he did cx that appt. Preferred Pharmacy: [facility] Retail Insurance: [employer] Prescription Benefit: Pt states, I don't know for sure. Living Will/HPOA: Pt has both LW and HPOA, who are his parents, Jesica and Tonny LNOK: Parents, Jesica and Tonny. Pt states they have just recently divorces. Father lives in [place]. Mother lives in [place]. Mother is in town currently and will take pt home @ d/c Living Arrangements: Lives alone in ranch-style home. 10-12 steps to enter home. Pt denies difficulty w/stairs. Independent w/ADL's and IADL's and manages own appts and medications. Transportation: Pt states drives self and states no transportation concerns at this time. Mother will take pt home @ d/c DME: Denies using any DME and denies needs. HHC/SNF: No hx of either. No needs identified. Pt wishes to return home and states has no concerns with going home at time of discharge. Pt states does not smoke or drink ETOH. CM to follow for home oxygen needs and any further discharge planning/needs. Pt voices no further concerns/needs at this time. Advised pt to ask for CM if any further questions/concerns/needs arise. Voices understanding. PLAN: Jose SHEA RN, CM
[2022-02-03] MEDS: Ensure Clear 120 ML Liquid PO ×3 (13:56→21:01)
[2022-02-03 17:01] VITALS: BP 127/88; PULSE 55; RESP 16; TEMP 36.7; O2SAT 98
[2022-02-03] MEDS: 0.9% Saline Lock 10 ML Syringe IV (20:43)
[2022-02-03 23:01] VITALS: BP 118/77; PULSE 60; RESP 16; TEMP 36.6; O2SAT 97
[2022-02-04 05:25] VITALS: BP 120/79; PULSE 61; RESP 16; TEMP 36.6; O2SAT 99
[2022-02-04 06:53] LABS: Absolute Neutrophil Count 5.2 X10^3/uL (2.0-7.7); Basophil# 0.02 X10^3/uL; Basophil% 0.3 % (0-1); Eosinophil# 0.03 X10^3/uL; Eosinophils% 0.4 % (0-5); Hematocrit 33.2 % (40-54); Hemoglobin 10.8 g/dL (13.0-16.5); Lymphocyte % 13.1 % (19-41); Mean Corp Hgb Conc 32.5 g/dL (32-36); Mean Corpuscular Hgb 30.7 pg (27.0-32.0); Mean Corpuscular Volume 94.3 fL (80-94); Mean Platelet Vol. 10.2 fl (6.2-12.0); Monocyte# 0.71 X10^3/uL; Monocyte% 10.3 % (0-10); NRBC Flagged by Analyzer 0 % (0-5); Neutrophil # 5.18 X10^3/uL (2.7-7.7); Neutrophil % 75.6 % (47-70); Platelet Count 201 K/mm3 (150-450); RBC Distribution Width CV 13.4 % (11.6-14.6); Red Blood Count 3.52 M/mm3 (4.6-6.2); White Blood Count 6.9 K/mm3 (4.4-11.0)
[2022-02-04 07:17] LABS: Anion Gap 5 (5-15); BUN 12 mg/dL (7-18); BUN/Creat Ratio 14.7 RATIO (10-20); Calcium,Total 8.6 mg/dL (8.5-10.1); Chloride 110 mmol/L (98-107); Creatinine, Serum 0.82 mg/dL (0.70-1.30); EST Glomerular Filtration Rate 106 mL/min (>60); Est Glom Filt Rate - Afr Amer 129 mL/min (>60); Estimated Creatinine Clearance 107.77 ml/min; Glucose 106 mg/dL (74-106); Sodium Level 140 mmol/L (136-145)
[2022-02-04] MEDS: 0.9% Normal Saline 1,000 ML 125 ML IV ×3 (07:37→22:51)
[2022-02-04] MEDS: Acetaminophen 325 MG Tablet 650 MG PO ×3 (07:42→20:15)
[2022-02-04 09:30] VITALS: BP 119/74; PULSE 55; RESP 18; TEMP 36; O2SAT 96
[2022-02-04] MEDS: Ensure Clear 120 ML Liquid PO ×3 (09:33→17:08)
[2022-02-04] MEDS: Pantoprazole Sodium 20 MG Tablet PO ×2 (09:34→22:37)
--- NOTE | 2022-02-04 10:36 | PN.HOSP_ITS ---
Subjective Subjective Patient seen and examined. He still complains of right jaw swelling. He denies any fever, chills, nausea, vomiting or diarrhea. Review of systems is otherwise negative. Objective Data Objective Data Vital Signs: Vital Signs Temp Pulse Resp BP Pulse Ox 96.8 F L 55 L 18 119/74 96 02/04/22 09:30 02/04/22 09:30 02/04/22 09:30 02/04/22 09:30 02/04/22 09:30 Oxygen Delivery Method Room Air Weight: 181 lb 10.574 oz Body Mass Index (BMI) 26.1 Intake & Output: Intake and Output for Last 24 Hours 02/02/22 02/03/22 02/04/22 23:59 23:59 23:59 Intake Total 100 / 580 6793.33 / 6793.33 1058.33 / 1058.33 Balance 100 / 580 6793.33 / 6793.33 1058.33 / 1058.33 Lab / Micro Data Result Diagrams: 02/04/22 06:15 02/04/22 06:15 Labs: Laboratory Results - last 24 hr 02/03/22 00:21: S.aureus Protein A PCR NEGATIVE, MRSA (PCR) Negative 02/04/22 06:15: WBC 6.9, RBC 3.52 L, Hgb 10.8 L, Hct 33.2 L, MCV 94.3 H, MCH 30.7, MCHC 32.5, RDW Std Deviation 46.0 H, RDW Coeff of Vito 13.4, Plt Count 201, MPV 10.2, Immature Gran % (Auto) 0.300, Neut % (Auto) 75.6 H, Lymph % (Auto) 13.1 L, [place] % (Auto) 10.3 H, Eos % (Auto) 0.4, Baso % (Auto) 0.3, Absolute Neuts (auto) 5.2, Absolute Lymphs (auto) 0.90, Nucleated RBC % 0 02/04/22 06:15: Sodium 140, Potassium 4.0, Chloride 110 H, Carbon Dioxide 25.0, Anion Gap 5, BUN 12, Creatinine 0.82, Estim Creat Clear Calc 107.77, Est GFR (MDRD) Af Amer 129, Est GFR (MDRD) Non-Af 106, BUN/Creatinine Ratio 14.7, Glucose 106, Calcium 8.6 Physical Exam Const alert, oriented x3 and no apparent distress Exam Limitations: no limitations HEENT head/scalp atraumatic, moist oral mucous membranes and oropharynx normal Head and Scalp: normocephalic Eyes PERRL and EOMs intact bilaterally Neck no lymphadenopathy Resp normal respiratory effort, no retractions, no use of accessory muscles and clear to auscultation bilaterally Cardio regular rate, regular rhythm, S1 normal heart sound, S2 normal heart sound and no murmurs GI normal to inspection, nondistended, normoactive bowel sounds, soft to palpation, non-tender and non-distended Extremity normal to inspection, full ROM and no clubbing, cyanosis or edema Skin no rashes or lesions noted Neuro oriented x3 Sensorium / Orientation: awake and alert Psych affect normal Assessment & Plan Assessment/Plan (1) Cellulitis, face: (2) Osteoradionecrosis: PLAN: #Osteoradionecrosis of the right jaw * due to radiation he received for orpharyngeal carcinoma * per ENT, due to his very large right ascending ramus sequestrum and pathologic fracutre, will require eventual surgical therapy with excision and external fixation. This will need to be done at a tertiary facility * ENT on board * blood cultures pending * on IV zosyn * #History of primary tonsillar carcinoma * has had to deal with recurrent support merchandiser space infections * completed 25 out of 30 hyperbaric treatments * CT shows support merchandiser space infection on the right with slight lateral pharyngea l wall fullness but no deep neck collection * ENT on board * #DVT prophylaxis: SCDs Charges/Coding Visit Charges Inpatient E&M: 56589 Subs Hosp L2
[2022-02-04 12:12] LABS: Vancomycin, Trough Level 4.1 ug/mL (5.0-15.0)
[2022-02-04 15:30] VITALS: BP 118/79; PULSE 59; RESP 18; TEMP 36; O2SAT 100
[2022-02-04 21:30] VITALS: BP 116/87; PULSE 53; RESP 16; TEMP 36.3; O2SAT 98
[2022-02-04] MEDS: oxyCODONE 5 MG Tablet PO (22:49)
[2022-02-05 03:30] VITALS: BP 133/82; PULSE 52; RESP 16; TEMP 36.7; O2SAT 98
[2022-02-05 05:25] LABS: Absolute Lymphocyte Count 0.76 X10^3/uL (0.83-4.51); Absolute Neutrophil Count 4.7 X10^3/uL (2.0-7.7); Basophil# 0.04 X10^3/uL; Basophil% 0.6 % (0-1); Eosinophil# 0.06 X10^3/uL; Hemoglobin 10.5 g/dL (13.0-16.5); Lymphocyte # 0.76 X10^3/ul (0.83-4.51); Lymphocyte % 12.1 % (19-41); Mean Corp Hgb Conc 32.8 g/dL (32-36); Mean Corpuscular Hgb 30.6 pg (27.0-32.0); Mean Corpuscular Volume 93.3 fL (80-94); Mean Platelet Vol. 10.2 fl (6.2-12.0); Monocyte# 0.66 X10^3/uL; Monocyte% 10.5 % (0-10); NRBC Flagged by Analyzer 0 % (0-5); Neutrophil # 4.73 X10^3/uL (2.7-7.7); Neutrophil % 75.6 % (47-70); Platelet Count 211 K/mm3 (150-450); RBC Distribution Width CV 13.3 % (11.6-14.6); RBC Distribution Width SD 46.4 fl (35.1-43.9); Red Blood Count 3.43 M/mm3 (4.6-6.2); White Blood Count 6.3 K/mm3 (4.4-11.0)
[2022-02-05] MEDS: Acetaminophen 325 MG Tablet 650 MG PO (05:49)
[2022-02-05 05:50] LABS: Anion Gap 8 (5-15); BUN 9 mg/dL (7-18); Calcium,Total 8.6 mg/dL (8.5-10.1); Chloride 110 mmol/L (98-107); EST Glomerular Filtration Rate 95 mL/min (>60); Est Glom Filt Rate - Afr Amer 114 mL/min (>60); Estimated Creatinine Clearance 98.19 ml/min; Glucose 94 mg/dL (74-106); Potassium 3.5 mmol/L (3.5-5.1); Sodium Level 141 mmol/L (136-145)
[2022-02-05] MEDS: 0.9% Normal Saline 1,000 ML 125 ML IV (06:33)
[2022-02-05 08:02] VITALS: O2SAT 96
[2022-02-05 09:30] VITALS: BP 120/85; PULSE 50; RESP 18; TEMP 37.2; O2SAT 99
[2022-02-05] MEDS: Pantoprazole Sodium 20 MG Tablet PO (09:37)
[2022-02-05] MEDS: Ensure Clear 120 ML Liquid PO (09:37)
--- NOTE | 2022-02-05 10:53 | DS.PCM_ITS ---
Providers Date of Admission: 02/02/22 Primary Care Physician: Marleen Lozano Consultations 02/02/22 22:55 Consult: ENT Routine Consulting Provider: Cristóbal Kim Reason for Consult: R jaw cellulitis, ongoing HBO for jaw osteonecrosis after radiation ton CA EMERGENT Consult: No MD Notified: Yes Date Notified: 02/02/22 Time Notified: 22:17 Method of Notification: per ED. Reason For Visit: R JAW CELLULITIS Diagnosis Discharge Diagnosis (1) Cellulitis, face: Status: Acute Code(s): L03.211 - Cellulitis of face (2) Osteoradionecrosis: Status: Acute Code(s): M87.30 - Other secondary osteonecrosis, unspecified bone; Y84.2 - Radiological procedure and radiotherapy as the cause of abnormal reaction of the patient, or of later complication, without mention of misadventure at the time of the procedure Medications at Discharge Home Medications amoxicillin-pot clavulanate 1 tab PO BID #20 tab 02/05/22 oxycodone 5 mg PO Q6H PRN 3 Days #12 tab 02/05/22 Hospital Course Operations None Summary of Care Provided Minutes Spent on Discharge: 45 Hospital Course: Patient is a 51 y/o male with an extensive PMH as outlined, including history of tonsilar cancer s/p tonsilar resection, and completed a course of radiation and osteoradionecrosis of the right jaw, undergoing hyperbaric oxygen therapy (completed 25 out of 30 sessions). He had also been treated with augmentin x 2 rounds. He was admitted via the ED on 02/02/2022 with a complaint of worsening right jaw swelling and redness with associated pain and low grade fever. CT of the face and sinus showed an aggressive osseus lesion of the right mandible with overlying significant inflammatory changes to the right sided of the face and an osseous lesion abuting the posterior left inferior molar. He was started on IV zosyn, and IV decadron. ENT was consulted. Blood cultures were negative. His swelling improved significantly and he felt much better. His diet was advanced and he was able to tolerate a soft diet. He remained stable and was discharged home on 02/05/2022. He is to follow up with with ENT to be referred to a tertiary center on outpatient basis for a free flap. Patient seen and examined prior to discharge. He felt much better and had no active complaints. Swelling has improved significantly. Review of systems was otherwise negative. Labs and vitals reviewed. Home meds reivewed and reconciled. Physical Exam Const alert, oriented x3 and no apparent distress General Appearance: cooperative, comfortable and well kempt Exam Limitations: no limitations HEENT normocephalic, head/scalp atraumatic, hearing grossly normal bilaterally, moist oral mucous membranes and oropharynx normal HEENT Narrative: right jaw swelling has improved significantly. Minimal tenderness and differential warmth. Eyes PERRL and EOMs intact bilaterally Neck no lymphadenopathy Resp normal respiratory effort, no retractions, no use of accessory muscles and clear to auscultation bilaterally Cardio regular rate, regular rhythm, S1 normal heart sound, S2 normal heart sound and no murmurs GI normal to inspection, nondistended, normoactive bowel sounds, soft to palpation, non-tender and non-distended Extremity normal to inspection, full ROM and no clubbing, cyanosis or edema Skin no rashes or lesions noted Neuro oriented x3 Sensorium / Orientation: awake and alert Psych affect normal Weight / BMI Weight Weight: 182 lb 8.684 oz Body Mass Index (BMI) 26.1 ABG / Lab / Microbiology Data Result Diagrams: 02/05/22 04:13 02/05/22 04:13 Laboratory: Laboratory Results - last 24 hr 02/04/22 11:27: Vancomycin Trough 4.1 L 02/05/22 04:13: WBC 6.3, RBC 3.43 L, Hgb 10.5 L, Hct 32.0 L, MCV 93.3, MCH 30.6, MCHC 32.8, RDW Std Deviation 46.4 H, RDW Coeff of Vito 13.3, Plt Count 211, MPV 10.2, Immature Gran % (Auto) 0.200, Neut % (Auto) 75.6 H, Lymph % (Auto) 12.1 L, [place] % (Auto) 10.5 H, Eos % (Auto) 1.0, Baso % (Auto) 0.6, Absolute Neuts (auto) 4.7, Absolute Lymphs (auto) 0.76 L, Nucleated RBC % 0 02/05/22 04:13: Sodium 141, Potassium 3.5, Chloride 110 H, Carbon Dioxide 23.0, Anion Gap 8, BUN 9, Creatinine 0.90, Estim Creat Clear Calc 98.19, Est GFR (MDRD) Af Amer 114, Est GFR (MDRD) Non-Af 95, BUN/Creatinine Ratio 10.0, Glucose 94, Calcium 8.6 Microbiology: Microbiology 02/02/22 20:15 Blood Culture (Wb) - Left Forearm Blood Culture - Preliminary No growth in 48 hours. 02/02/22 20:05 Blood Culture (Wb) - Anticubital Left Blood Culture - Preliminary No growth in 48 hours. D/C Instructions Discharge Diet: Low fat / Low cholesterol Discharge Activity: Return to Normal Activity Call your doctor if you observe: Fever of 101 or Higher, Shortness of breath, D izziness, Swelling in the ankles and Increased palpitations (irregular heartbeat) Meaningful Use Info Meaningful Use Diagnoses (Choose all that apply): None applicable Discharge Plan Admission Admit Date/Time: 02/02/22 22:15 Primary Reason for Your Visit: right jaw swelling Attending Provider: Sana Kaminski Primary Care Provider: Marleen Lozano Consulting Providers: Cristóbal Kim ; Taylor Odonnell Discharge Orders/Prescriptions Prescriptions: New amoxicillin-pot clavulanate 875-125 mg tablet 1 tab PO BID Qty: 20 RF: 0 oxycodone 5 mg tablet 5 mg PO Q6H PRN (Reason: pain) 3 Days Qty: 12 RF: 0 Discontinued amoxicillin-pot clavulanate 875-125 mg tablet 1 tab PO BID RF: 0 Referrals / Follow Up: Cristóbal Kim MD [STAFF PHYSICIAN] - Within 1 Week Care Physician,No Primary [NON-STAFF] - Marleen Lozano [Primary Care Provider] - Within 1 Week Disposition Disposition (needs filled in before D/C Order can be placed): Home, Self Care Charges/Coding Visit Charges Inpatient E&M: 40891 Disch Hosp
== END 2022-02-05 14:45 | disposition home or self-care (01) | DRG 603 ==
LOC: ED 22:28 → PCU 02-03 01:16
PROVIDERS: Admitting Provider Family Medicine; Emergency Provider Emergency Medicine; PCP Family Medicine; Visit Provider Student in an Organized Health Care Education/Training Program
DX: L03.211 Cellulitis of face (principal); M84.68XA Pathological fracture in other disease, other site, initial encounter for fracture; M27.2 Inflammatory conditions of jaws; Y84.2 Radiological procedure and radiotherapy as the cause of abnormal reaction of the patient, or of later complication, without mention of misadventure at the time of the procedure; Z87.891 Personal history of nicotine dependence; Z92.3 Personal history of irradiation; Z92.21 Personal history of antineoplastic chemotherapy; Z85.818 Personal history of malignant neoplasm of other sites of lip, oral cavity, and pharynx
CPT/HCPCS: 36415; 70487; 80048; 80053; 80202; 83605; 85025; 87040; 87640; 99283; J7030; J7040; Q9967; A4216

== ENCOUNTER → 2022-03-05 | Outpatient (CLI) | payer BC, SELFPAY | END | disposition home or self-care (01) | LOC: PSN 12:08 | PROVIDERS: PCP Family Medicine; Referring Provider Otolaryngology; Visit Provider Otolaryngology | DX: Z01.818 Encounter for other preprocedural examination (principal); M87.9 Osteonecrosis, unspecified; C10.9 Malignant neoplasm of oropharynx, unspecified; Z20.822 Contact with and (suspected) exposure to COVID-19 | CPT/HCPCS: 87635; C9803; U0003; U0005 ==

== ENCOUNTER → 2022-04-12 | Outpatient (CLI) | payer BC, MEDICAID, SELFPAY ==
[2022-04-12 10:02] LABS: Hematocrit 37.2 % (40-54); Hemoglobin 12.2 g/dL (13.0-16.5); Mean Corp Hgb Conc 32.8 g/dL (32-36); Mean Corpuscular Hgb 30.4 pg (27.0-32.0); Mean Corpuscular Volume 92.8 fL (80-94); Mean Platelet Vol. 10.9 fl (6.2-12.0); Platelet Count 285 K/mm3 (150-450); RBC Distribution Width CV 13.9 % (11.6-14.6); RBC Distribution Width SD 46.5 fl (35.1-43.9); Red Blood Count 4.01 M/mm3 (4.6-6.2); White Blood Count 4.9 K/mm3 (4.4-11.0)
[2022-04-12 10:19] LABS: Albumin, Serum 3.7 g/dL (3.2-5.0); BUN 15 mg/dL (7-18); BUN/Creat Ratio 19.7 RATIO (10-20); CRP < 2.90 mg/L (0.0-3.0); Calcium,Total 9.5 mg/dL (8.5-10.1); Chloride 103 mmol/L (98-107); Creatinine, Serum 0.76 mg/dL (0.70-1.30); EST Glomerular Filtration Rate 115 mL/min (>60); Est Glom Filt Rate - Afr Amer 139 mL/min (>60); Glucose 106 mg/dL (74-106); Phosphorus 2.8 mg/dL (2.5-4.9); Sodium Level 136 mmol/L (136-145)
[2022-04-12 17:58] LABS: Xtra Tube EP Lab EXTRA TUBE
== END | disposition home or self-care (01) ==
PROVIDERS: PCP Family Medicine
DX: M27.2 Inflammatory conditions of jaws (principal); Y84.2 Radiological procedure and radiotherapy as the cause of abnormal reaction of the patient, or of later complication, without mention of misadventure at the time of the procedure
CPT/HCPCS: 80069; 85027; 86140; A4216

== ENCOUNTER → 2022-04-19 | Outpatient (CLI) | payer BC, MEDICAID, SELFPAY ==
[2022-04-19 09:20] LABS: Hematocrit 37.8 % (40-54); Hemoglobin 12.1 g/dL (13.0-16.5); Mean Corpuscular Hgb 30.3 pg (27.0-32.0); Mean Corpuscular Volume 94.5 fL (80-94); Mean Platelet Vol. 10.6 fl (6.2-12.0); Platelet Count 260 K/mm3 (150-450); RBC Distribution Width CV 13.7 % (11.6-14.6); RBC Distribution Width SD 47.8 fl (35.1-43.9); White Blood Count 4.8 K/mm3 (4.4-11.0)
[2022-04-19 09:40] LABS: Albumin, Serum 3.7 g/dL (3.2-5.0); BUN 14 mg/dL (7-18); BUN/Creat Ratio 19.4 RATIO (10-20); CRP < 2.90 mg/L (0.0-3.0); Calcium,Total 9.3 mg/dL (8.5-10.1); Chloride 106 mmol/L (98-107); Creatinine, Serum 0.72 mg/dL (0.70-1.30); EST Glomerular Filtration Rate 122 mL/min (>60); Est Glom Filt Rate - Afr Amer 148 mL/min (>60); Glucose 101 mg/dL (74-106); Phosphorus 2.7 mg/dL (2.5-4.9); Potassium 4.2 mmol/L (3.5-5.1); Sodium Level 141 mmol/L (136-145)
== END | disposition home or self-care (01) ==
PROVIDERS: PCP Family Medicine
DX: Z45.2 Encounter for adjustment and management of vascular access device (principal); M93.90 Osteochondropathy, unspecified of unspecified site; T86.821 Skin graft (allograft) (autograft) failure
CPT/HCPCS: 36592; 80069; 85027; 86140; A4216

== ENCOUNTER → 2022-04-26 | Outpatient (CLI) | payer BC, MEDICAID, SELFPAY ==
[2022-04-26 09:19] LABS: Hematocrit 38.2 % (40-54); Hemoglobin 12.5 g/dL (13.0-16.5); Mean Corp Hgb Conc 32.7 g/dL (32-36); Mean Corpuscular Hgb 30.5 pg (27.0-32.0); Mean Corpuscular Volume 93.2 fL (80-94); Mean Platelet Vol. 10.4 fl (6.2-12.0); Platelet Count 227 K/mm3 (150-450); RBC Distribution Width CV 13.6 % (11.6-14.6); RBC Distribution Width SD 46.8 fl (35.1-43.9); White Blood Count 4.8 K/mm3 (4.4-11.0)
[2022-04-26 09:39] LABS: Albumin, Serum 3.6 g/dL (3.2-5.0); BUN 12 mg/dL (7-18); BUN/Creat Ratio 18.9 RATIO (10-20); CRP < 2.90 mg/L (0.0-3.0); Calcium,Total 9.4 mg/dL (8.5-10.1); Chloride 107 mmol/L (98-107); Creatinine, Serum 0.64 mg/dL (0.70-1.30); EST Glomerular Filtration Rate 141 mL/min (>60); Est Glom Filt Rate - Afr Amer 171 mL/min (>60); Glucose 92 mg/dL (74-106); Phosphorus 2.5 mg/dL (2.5-4.9); Potassium 4.2 mmol/L (3.5-5.1); Sodium Level 140 mmol/L (136-145)
== END | disposition home or self-care (01) ==
PROVIDERS: PCP Family Medicine
DX: Z45.2 Encounter for adjustment and management of vascular access device (principal); M87.9 Osteonecrosis, unspecified; T85.898A Other specified complication of other internal prosthetic devices, implants and grafts, initial encounter
CPT/HCPCS: 36592; 80069; 85027; 86140; A4216

== ENCOUNTER → 2022-05-03 | Outpatient (CLI) | payer BC, MEDICAID, SELFPAY ==
[2022-05-03 09:37] LABS: Hematocrit 39.1 % (40-54); Hemoglobin 12.8 g/dL (13.0-16.5); Mean Corp Hgb Conc 32.7 g/dL (32-36); Mean Corpuscular Hgb 30.6 pg (27.0-32.0); Mean Corpuscular Volume 93.5 fL (80-94); Mean Platelet Vol. 10.1 fl (6.2-12.0); Platelet Count 249 K/mm3 (150-450); RBC Distribution Width CV 13.7 % (11.6-14.6); RBC Distribution Width SD 46.5 fl (35.1-43.9); Red Blood Count 4.18 M/mm3 (4.6-6.2); White Blood Count 6.7 K/mm3 (4.4-11.0)
[2022-05-03 09:46] LABS: International Normalized Ratio 0.9
[2022-05-03 10:04] LABS: Albumin, Serum 3.7 g/dL (3.2-5.0); BUN 15 mg/dL (7-18); BUN/Creat Ratio 21.6 RATIO (10-20); CRP 3.11 mg/L (0.0-3.0); Calcium,Total 9.4 mg/dL (8.5-10.1); Chloride 107 mmol/L (98-107); Creatinine, Serum 0.69 mg/dL (0.70-1.30); EST Glomerular Filtration Rate 128 mL/min (>60); Est Glom Filt Rate - Afr Amer 155 mL/min (>60); Glucose 87 mg/dL (74-106); Phosphorus 3.1 mg/dL (2.5-4.9); Potassium 4.1 mmol/L (3.5-5.1); Sodium Level 141 mmol/L (136-145); Thyroid Stim Hormone (TSH) 2.91 uIU/mL (0.358-3.74)
== END | disposition home or self-care (01) ==
PROVIDERS: PCP Family Medicine
DX: M87.9 Osteonecrosis, unspecified (principal); S01.502D Unspecified open wound of oral cavity, subsequent encounter
CPT/HCPCS: 36592; 80069; 84443; 85027; 85610; 85730; 86140; 86850; 86900; 86901; A4216

== ENCOUNTER → 2022-06-25 | Outpatient (CLI) | payer BC, MEDICAID, SELFPAY ==
[2022-06-25 11:00] VITALS: BMI 26.6
[2022-06-25] MEDS: 0.9% NaCl PICC Flush IV (11:02)
[2022-06-25 11:20] LABS: Absolute Lymphocyte Count 0.81 X10^3/uL (0.83-4.51); Absolute Neutrophil Count 3.7 X10^3/uL (2.0-7.7); Basophil# 0.05 X10^3/uL; Basophil% 0.9 % (0-1); Eosinophils% 7.1 % (0-5); Hematocrit 38.6 % (40-54); Hemoglobin 12.2 g/dL (13.0-16.5); Lymphocyte # 0.81 X10^3/ul (0.83-4.51); Lymphocyte % 14.4 % (19-41); Mean Corp Hgb Conc 31.6 g/dL (32-36); Mean Corpuscular Hgb 28.9 pg (27.0-32.0); Mean Corpuscular Volume 91.5 fL (80-94); Mean Platelet Vol. 9.7 fl (6.2-12.0); Monocyte% 10.7 % (0-10); NRBC Flagged by Analyzer 0 % (0-5); Neutrophil # 3.74 X10^3/uL (2.7-7.7); Neutrophil % 66.4 % (47-70); Platelet Count 336 K/mm3 (150-450); RBC Distribution Width SD 46.9 fl (35.1-43.9); Red Blood Count 4.22 M/mm3 (4.6-6.2); White Blood Count 5.6 K/mm3 (4.4-11.0)
[2022-06-25 11:35] LABS: ALB/GLOB Ratio 1.1 RATIO (0.9-2.4); AST(SGOT) 16 U/L (15-37); Alanine Aminotransfer ALT/SGPT 34 U/L (16-61); Alkaline Phosphatase 86 U/L (45-117); Anion Gap 5 (5-15); BUN 15 mg/dL (7-18); BUN/Creat Ratio 21.7 RATIO (10-20); CRP 5.53 mg/L (0.0-3.0); Calcium,Total 9.6 mg/dL (8.5-10.1); Chloride 104 mmol/L (98-107); Creatinine, Serum 0.69 mg/dL (0.70-1.30); EST Glomerular Filtration Rate 128 mL/min (>60); Est Glom Filt Rate - Afr Amer 155 mL/min (>60); Estimated Creatinine Clearance 126.66 ml/min; Globulin 3.8 g/dL (2.2-4.2); Glucose 101 mg/dL (74-106); Potassium 4.1 mmol/L (3.5-5.1); Protein, Total 7.8 g/dL (6.4-8.2); Sodium Level 137 mmol/L (136-145)
== END | disposition home or self-care (01) ==
LOC: MEDOUTP 10:20
PROVIDERS: PCP Family Medicine
DX: M27.2 Inflammatory conditions of jaws (principal); Y84.2 Radiological procedure and radiotherapy as the cause of abnormal reaction of the patient, or of later complication, without mention of misadventure at the time of the procedure; T86.821 Skin graft (allograft) (autograft) failure
CPT/HCPCS: 36592; 80053; 85025; 86140; A4216

== ENCOUNTER → 2022-07-02 | Outpatient (CLI) | payer BC, MEDICAID, SELFPAY ==
[2022-07-02 12:05] LABS: ALB/GLOB Ratio 1.1 RATIO (0.9-2.4); AST(SGOT) 21 U/L (15-37); Alanine Aminotransfer ALT/SGPT 38 U/L (16-61); Alkaline Phosphatase 94 U/L (45-117); Anion Gap 5 (5-15); BUN 11 mg/dL (7-18); BUN/Creat Ratio 14.6 RATIO (10-20); CRP < 2.90 mg/L (0.0-3.0); Calcium,Total 9.7 mg/dL (8.5-10.1); Chloride 104 mmol/L (98-107); Creatinine, Serum 0.76 mg/dL (0.70-1.30); EST Glomerular Filtration Rate 116 mL/min (>60); Est Glom Filt Rate - Afr Amer 140 mL/min (>60); Globulin 3.8 g/dL (2.2-4.2); Glucose 100 mg/dL (74-106); Potassium 3.9 mmol/L (3.5-5.1); Protein, Total 7.8 g/dL (6.4-8.2); Sodium Level 137 mmol/L (136-145)
[2022-07-02 12:09] LABS: Absolute Lymphocyte Count 0.75 X10^3/uL (0.83-4.51); Absolute Neutrophil Count 2.3 X10^3/uL (2.0-7.7); Basophil# 0.06 X10^3/uL; Basophil% 1.5 % (0-1); Eosinophil# 0.36 X10^3/uL; Eosinophils% 8.8 % (0-5); Hematocrit 38.3 % (40-54); Hemoglobin 12.8 g/dL (13.0-16.5); Lymphocyte # 0.75 X10^3/ul (0.83-4.51); Lymphocyte % 18.4 % (19-41); Mean Corp Hgb Conc 33.4 g/dL (32-36); Mean Corpuscular Hgb 29.8 pg (27.0-32.0); Mean Corpuscular Volume 89.1 fL (80-94); Mean Platelet Vol. 9.9 fl (6.2-12.0); Monocyte# 0.63 X10^3/uL; Monocyte% 15.5 % (0-10); NRBC Flagged by Analyzer 0 % (0-5); Neutrophil # 2.26 X10^3/uL (2.7-7.7); Neutrophil % 55.6 % (47-70); Platelet Count 372 K/mm3 (150-450); RBC Distribution Width SD 45.4 fl (35.1-43.9); White Blood Count 4.1 K/mm3 (4.4-11.0)
== END | disposition home or self-care (01) ==
LOC: MEDOUTP 10:48
PROVIDERS: PCP Family Medicine
DX: M27.2 Inflammatory conditions of jaws (principal); Y84.2 Radiological procedure and radiotherapy as the cause of abnormal reaction of the patient, or of later complication, without mention of misadventure at the time of the procedure; T86.821 Skin graft (allograft) (autograft) failure
CPT/HCPCS: 36592; 80053; 85025; 86140; A4216

== ENCOUNTER → 2022-07-09 | Outpatient (CLI) | payer MEDICAID, SELFPAY ==
[2022-07-09 11:36] LABS: Absolute Neutrophil Count 2.6 X10^3/uL (2.0-7.7); Basophil# 0.04 X10^3/uL; Basophil% 0.9 % (0-1); Eosinophil# 0.48 X10^3/uL; Eosinophils% 10.8 % (0-5); Hematocrit 39.3 % (40-54); Mean Corp Hgb Conc 33.1 g/dL (32-36); Mean Corpuscular Hgb 29.8 pg (27.0-32.0); Mean Corpuscular Volume 90.1 fL (80-94); Mean Platelet Vol. 9.8 fl (6.2-12.0); Monocyte# 0.56 X10^3/uL; Monocyte% 12.6 % (0-10); NRBC Flagged by Analyzer 0 % (0-5); Neutrophil # 2.55 X10^3/uL (2.7-7.7); Neutrophil % 57.3 % (47-70); Platelet Count 269 K/mm3 (150-450); RBC Distribution Width CV 14.3 % (11.6-14.6); RBC Distribution Width SD 46.7 fl (35.1-43.9); Red Blood Count 4.36 M/mm3 (4.6-6.2); White Blood Count 4.5 K/mm3 (4.4-11.0)
[2022-07-09 11:56] LABS: ALB/GLOB Ratio 1.1 RATIO (0.9-2.4); AST(SGOT) 20 U/L (15-37); Alanine Aminotransfer ALT/SGPT 37 U/L (16-61); Albumin, Serum 3.8 g/dL (3.2-5.0); Alkaline Phosphatase 85 U/L (45-117); Anion Gap 4 (5-15); BUN 12 mg/dL (7-18); BUN/Creat Ratio 15.9 RATIO (10-20); CRP < 2.90 mg/L (0.0-3.0); Calcium,Total 9.3 mg/dL (8.5-10.1); Chloride 106 mmol/L (98-107); Creatinine, Serum 0.76 mg/dL (0.70-1.30); EST Glomerular Filtration Rate 115 mL/min (>60); Est Glom Filt Rate - Afr Amer 140 mL/min (>60); Globulin 3.6 g/dL (2.2-4.2); Glucose 92 mg/dL (74-106); Protein, Total 7.4 g/dL (6.4-8.2); Sodium Level 139 mmol/L (136-145)
[2022-07-09 19:29] LABS: Xtra Tube EP Lab EXTRA TUBE
== END | disposition home or self-care (01) ==
LOC: MEDOUTP 11:08
PROVIDERS: PCP Family Medicine
DX: M27.2 Inflammatory conditions of jaws (principal); Y84.2 Radiological procedure and radiotherapy as the cause of abnormal reaction of the patient, or of later complication, without mention of misadventure at the time of the procedure
CPT/HCPCS: 36592; 80053; 85025; 86140; A4216

== ENCOUNTER → 2022-07-15 | Outpatient (CLI) | payer MEDICAID, SELFPAY ==
[2022-07-15 11:25] LABS: Absolute Lymphocyte Count 0.91 X10^3/uL (0.83-4.51); Absolute Neutrophil Count 2.6 X10^3/uL (2.0-7.7); Basophil# 0.06 X10^3/uL; Basophil% 1.3 % (0-1); Eosinophil# 0.43 X10^3/uL; Eosinophils% 9.4 % (0-5); Hematocrit 40.5 % (40-54); Lymphocyte # 0.91 X10^3/ul (0.83-4.51); Lymphocyte % 19.9 % (19-41); Mean Corp Hgb Conc 32.1 g/dL (32-36); Mean Corpuscular Hgb 28.9 pg (27.0-32.0); Mean Platelet Vol. 9.7 fl (6.2-12.0); Monocyte# 0.59 X10^3/uL; Monocyte% 12.9 % (0-10); NRBC Flagged by Analyzer 0 % (0-5); Neutrophil # 2.57 X10^3/uL (2.7-7.7); Neutrophil % 56.3 % (47-70); Platelet Count 244 K/mm3 (150-450); RBC Distribution Width CV 14.4 % (11.6-14.6); RBC Distribution Width SD 47.6 fl (35.1-43.9); White Blood Count 4.6 K/mm3 (4.4-11.0)
[2022-07-15 11:49] LABS: AST(SGOT) 20 U/L (15-37); Alanine Aminotransfer ALT/SGPT 39 U/L (16-61); Albumin, Serum 3.9 g/dL (3.2-5.0); Alkaline Phosphatase 85 U/L (45-117); Anion Gap 8 (5-15); BUN 14 mg/dL (7-18); BUN/Creat Ratio 19.3 RATIO (10-20); CRP < 2.90 mg/L (0.0-3.0); Calcium,Total 9.5 mg/dL (8.5-10.1); Chloride 104 mmol/L (98-107); Creatinine, Serum 0.72 mg/dL (0.70-1.30); EST Glomerular Filtration Rate 122 mL/min (>60); Est Glom Filt Rate - Afr Amer 147 mL/min (>60); Globulin 3.8 g/dL (2.2-4.2); Glucose 97 mg/dL (74-106); Potassium 4.1 mmol/L (3.5-5.1); Protein, Total 7.7 g/dL (6.4-8.2); Sodium Level 139 mmol/L (136-145)
== END | disposition home or self-care (01) ==
LOC: MEDOUTP 11:03
PROVIDERS: PCP Family Medicine
DX: M27.2 Inflammatory conditions of jaws (principal); Y84.2 Radiological procedure and radiotherapy as the cause of abnormal reaction of the patient, or of later complication, without mention of misadventure at the time of the procedure
CPT/HCPCS: 36592; 80053; 85025; 86140; A4216

== ENCOUNTER → 2022-07-23 | Outpatient (CLI) | payer MEDICAID, SELFPAY ==
[2022-07-23 11:56] LABS: Absolute Lymphocyte Count 0.81 X10^3/uL (0.83-4.51); Absolute Neutrophil Count 2.6 X10^3/uL (2.0-7.7); Basophil# 0.05 X10^3/uL; Basophil% 1.2 % (0-1); Eosinophil# 0.31 X10^3/uL; Eosinophils% 7.1 % (0-5); Hematocrit 42.2 % (40-54); Hemoglobin 13.5 g/dL (13.0-16.5); Lymphocyte # 0.81 X10^3/ul (0.83-4.51); Lymphocyte % 18.7 % (19-41); Mean Corpuscular Hgb 29.1 pg (27.0-32.0); Mean Corpuscular Volume 90.9 fL (80-94); Mean Platelet Vol. 9.9 fl (6.2-12.0); Monocyte# 0.53 X10^3/uL; Monocyte% 12.2 % (0-10); NRBC Flagged by Analyzer 0 % (0-5); Neutrophil # 2.62 X10^3/uL (2.7-7.7); Neutrophil % 60.3 % (47-70); Platelet Count 285 K/mm3 (150-450); RBC Distribution Width CV 14.6 % (11.6-14.6); RBC Distribution Width SD 48.6 fl (35.1-43.9); Red Blood Count 4.64 M/mm3 (4.6-6.2); White Blood Count 4.3 K/mm3 (4.4-11.0)
[2022-07-23 13:04] LABS: ALB/GLOB Ratio 1.1 RATIO (0.9-2.4); AST(SGOT) 21 U/L (15-37); Alanine Aminotransfer ALT/SGPT 42 U/L (16-61); Alkaline Phosphatase 78 U/L (45-117); Anion Gap 7 (5-15); BUN 15 mg/dL (7-18); BUN/Creat Ratio 18.1 RATIO (10-20); CRP < 2.90 mg/L (0.0-3.0); Calcium,Total 9.2 mg/dL (8.5-10.1); Chloride 105 mmol/L (98-107); Creatinine, Serum 0.83 mg/dL (0.70-1.30); EST Glomerular Filtration Rate 104 mL/min (>60); Est Glom Filt Rate - Afr Amer 126 mL/min (>60); Globulin 3.5 g/dL (2.2-4.2); Glucose 96 mg/dL (74-106); Protein, Total 7.5 g/dL (6.4-8.2); Sodium Level 139 mmol/L (136-145)
== END | disposition home or self-care (01) ==
LOC: MEDOUTP 11:10
PROVIDERS: PCP Family Medicine
DX: M27.2 Inflammatory conditions of jaws (principal); Y84.2 Radiological procedure and radiotherapy as the cause of abnormal reaction of the patient, or of later complication, without mention of misadventure at the time of the procedure; Z45.2 Encounter for adjustment and management of vascular access device
CPT/HCPCS: 36592; 80053; 85025; 86140; A4216

== ENCOUNTER → 2022-07-30 | Outpatient (CLI) | payer MEDICAID, SELFPAY ==
[2022-07-30 11:59] LABS: Absolute Lymphocyte Count 0.95 X10^3/uL (0.83-4.51); Absolute Neutrophil Count 2.4 X10^3/uL (2.0-7.7); Basophil# 0.04 X10^3/uL; Eosinophil# 0.25 X10^3/uL; Hematocrit 42.9 % (40-54); Hemoglobin 13.6 g/dL (13.0-16.5); Lymphocyte # 0.95 X10^3/ul (0.83-4.51); Lymphocyte % 22.8 % (19-41); Mean Corp Hgb Conc 31.7 g/dL (32-36); Mean Corpuscular Hgb 28.6 pg (27.0-32.0); Mean Corpuscular Volume 90.3 fL (80-94); Mean Platelet Vol. 9.7 fl (6.2-12.0); Monocyte# 0.52 X10^3/uL; Monocyte% 12.5 % (0-10); NRBC Flagged by Analyzer 0 % (0-5); Neutrophil % 57.5 % (47-70); Platelet Count 285 K/mm3 (150-450); RBC Distribution Width CV 14.6 % (11.6-14.6); RBC Distribution Width SD 48.6 fl (35.1-43.9); Red Blood Count 4.75 M/mm3 (4.6-6.2); White Blood Count 4.2 K/mm3 (4.4-11.0)
[2022-07-30 12:18] LABS: ALB/GLOB Ratio 1.1 RATIO (0.9-2.4); AST(SGOT) 22 U/L (15-37); Alanine Aminotransfer ALT/SGPT 45 U/L (16-61); Albumin, Serum 4.1 g/dL (3.2-5.0); Alkaline Phosphatase 82 U/L (45-117); Anion Gap 4 (5-15); BUN 10 mg/dL (7-18); BUN/Creat Ratio 11.7 RATIO (10-20); CRP < 2.90 mg/L (0.0-3.0); Calcium,Total 9.5 mg/dL (8.5-10.1); Chloride 105 mmol/L (98-107); Creatinine, Serum 0.85 mg/dL (0.70-1.30); EST Glomerular Filtration Rate 100 mL/min (>60); Est Glom Filt Rate - Afr Amer 122 mL/min (>60); Globulin 3.7 g/dL (2.2-4.2); Glucose 93 mg/dL (74-106); Potassium 3.8 mmol/L (3.5-5.1); Protein, Total 7.8 g/dL (6.4-8.2); Sodium Level 138 mmol/L (136-145)
== END | disposition home or self-care (01) ==
PROVIDERS: PCP Family Medicine
DX: M27.2 Inflammatory conditions of jaws (principal); Y84.2 Radiological procedure and radiotherapy as the cause of abnormal reaction of the patient, or of later complication, without mention of misadventure at the time of the procedure
CPT/HCPCS: 36592; 80053; 85025; 86140; A4216

== ENCOUNTER → 2022-08-04 | Outpatient (CLI) | payer MEDICAID, SELFPAY | END | disposition home or self-care (01) | PROVIDERS: PCP Family Medicine | DX: M27.2 Inflammatory conditions of jaws (principal); Y84.2 Radiological procedure and radiotherapy as the cause of abnormal reaction of the patient, or of later complication, without mention of misadventure at the time of the procedure ==